=== PATIENT | male | born 1940 | race African-American/Black ===

== ENCOUNTER → 2020-04-20 | Outpatient (CLI) | payer MEDICARE, OTHER | LOC: OD 08:42 | PROVIDERS: ATTEND Otolaryngology | DX: J30.9 Allergic rhinitis, unspecified (principal) | CPT/HCPCS: 36415; 82785; 86003 ==

== ENCOUNTER 2020-06-09 02:36 | Emergency (ER) | payer MEDICARE, OTHER ==
[2020-06-09] MEDS ORDERED: MORPHINE SULFATE 10 MG/ML INJ IV PRN (02:58)
[2020-06-09] MEDS ORDERED: ONDANSETRON HCL INJ/PF 4 MG/2 ML SDV IV ONE (02:58)
[2020-06-09] MEDS ORDERED: NITROGLYCERIN/D5W 50 MG/250 ML RTUINJ IV PRN (02:58)
[2020-06-09] MEDS ORDERED: ASPIRIN 81 MG TABLET, CHEWABLE PO ONE (02:58)
--- NOTE | 2020-06-09 03:05 | ER Document Report ---
ED Respiratory Problem - General Chief Complaint: Shortness Of Breath Stated Complaint: SHORT OF BREATH Time Seen by Provider: 06/09/20 02:47 Primary Care Provider: JOCELYN SUMNER MD [ACTIVE STAFF] - Follow up as needed Mode of Arrival: Ambulatory Information source: Patient, Relative - Notes: 80-year-old black male arrives by POV with his with chief complaint of having right-sided chest pain with associated shortness of breath and dyspnea on exertion that began 45 minutes prior to arrival. Patient reports for the last month he has had increasingly progressive shortness of breath. Chest pain as around 6 out of 10. He denies any hemoptysis but his EKG has sinus tachycardia at 96 bpm and patient has multiple PVCs. Patient's blood pressure is also hypertensive. TRAVEL OUTSIDE OF THE [place] IN LAST 30 DAYS: No - HPI Patient complains to provider of: Chest pain, COPD, Short of breath Onset: Just prior to arrival Duration: Worse/persistent Quality of pain: Achy Severity: Moderate Pain Level: 3 Short of Breath: Moderate Chest pain/discomfort: Heaviness, Worse with deep breaths - Related Data Allergies/Adverse Reactions: No Known Allergies Allergy (Unverified 01/06/16 09:35) Past Medical History - General Information source: Patient - Social History Smoking Status: Former Smoker - Patient quit smoking in 2000 and began smoking when he was 15 years old Cigarette use (# per day): No Chew tobacco use (# tins/day): No Smoking Education Provided: No Frequency of alcohol use: None - Patient quit drinking in 1975 Occupation: Patient is retired marine Lives with: Family Family History: Reviewed & Not Pertinent Patient has suicidal ideation: No Patient has homicidal ideation: No - Past Medical History Cardiac Medical History: Reports: Hx Hypertension Denies: Hx Coronary Artery Disease, Hx Heart Attack Pulmonary Medical History: Denies: Hx Asthma, Hx Bronchitis, Hx COPD, Hx Pneumonia Neurological Medical History: Denies: Hx Cerebrovascular Accident, Hx Seizures Musculoskeletal Medical History: Denies Hx Arthritis - Immunizations Hx Diphtheria, Pertussis, Tetanus Vaccination: No Review of Systems - Review of Systems Constitutional: See HPI, Weakness, Recent illness EENT: No symptoms reported Cardiovascular: See HPI, Chest pain, Palpitations, Orthopnea, Dizziness, Lightheaded Respiratory: See HPI, Hurts to breathe, Short of breath Gastrointestinal: No symptoms reported Genitourinary: No symptoms reported Male Genitourinary: No symptoms reported Musculoskeletal: No symptoms reported Skin: No symptoms reported Hematologic/Lymphatic: No symptoms reported Neurological/Psychological: No symptoms reported Physical Exam - Vital signs Vitals: Temp 98.2 F 06/09/20 03:30 Interpretation: Normal - General General appearance: Appears well, Alert - HEENT Head: Normocephalic, Atraumatic Eyes: Normal Pupils: PERRL - Respiratory Respiratory status: Labored, Tachypnea Chest status: Tender - right sided CP on p/p Breath sounds: Normal Chest palpation: Normal - Cardiovascular Rhythm: Tachycardia Heart sounds: Normal auscultation Murmur: No - Abdominal Inspection: Normal Distension: No distension Bowel sounds: Normal Tenderness: Nontender Organomegaly: No organomegaly - Rectal Prostate: Other - deferred - Genitourinary Scrotum: Other - deferred - Back Back: Normal, Nontender - Extremities General upper extremity: Normal inspection, Nontender, Normal color, Normal ROM, Normal temperature General lower extremity: Normal inspection, Nontender, Normal color, Normal ROM, Normal temperature, Normal weight bearing. No: Ace's sign - Neurological Neuro grossly intact: Yes Cognition: Normal Orientation: AAOx4 [place] Coma Scale Eye Opening: Spontaneous [place] Coma Scale Verbal: Oriented [place] Coma Scale Motor: Obeys Commands [place] Coma Scale Total: 15 Speech: Normal Motor strength normal: LUE, RUE, LLE, RLE Sensory: Normal - Psychological Associated symptoms: Normal affect, Normal mood - Skin Skin Temperature: Warm Skin Moisture: Dry Skin Color: Normal Course - Vital Signs Vital signs: Temp Pulse Resp BP Pulse Ox 98.2 F 06/09/20 03:30 - Laboratory Result Diagrams: 06/09/20 03:03 06/09/20 03:03 Laboratory results interpreted by me: 06/09/20 06/09/20 06/09/20 03:03 03:03 03:03 RDW 14.1 H Glucose 114 H Creatine Kinase 180 H NT-Pro-B Natriuret Pep 1430 H - Diagnostic Test Radiology reviewed: Reports reviewed - CTA chest no PE but viral pattern - EKG Interpretation by Me EKG shows normal: Sinus rhythm Rate: Tachycardia Rhythm: NSR - 106 HR with multiple PVCs and atypical left-sided bundle branch block and this was read by myself and I agree with the quality assurance monitor as well. Critical Care Note - Critical Care Note Comments: By 314 patient's blood pressure had decreased and we held the nitroglycerin drip but patient continued to have multiple PVCs and therefore 1 g of magnesium was written. Discharge - Discharge Clinical Impression: viral lung disease on CTA, COVID-19 virus test result unknown CHF (congestive heart failure) Qualifiers: Heart failure type: unspecified Heart failure chronicity: unspecified Qualified Code(s): I50.9 - Heart failure, unspecified Condition: Stable Disposition: HOME, SELF-CARE Instructions: COVID-19 Guidance for Persons Under Investigation, Chest Pain of Unclear Cause ([facility]) Additional Instructions: Follow-up with personal doctor; this week return to ER as needed; take medicines as directed ;encourage fluids; remain under quarantine until COVID-19 test has returned Prescriptions: Dexamethasone [Decadron 4 Mg Tablet] 4 mg PO DAILY #5 tablet Furosemide [Lasix 20 mg Tablet] 20 mg PO DAILY #3 tablet Azithromycin [Zithromax 250 mg Tablet] 250 mg PO ASDIR PRN #6 tablet PRN Reason: Referrals: JOCELYN SUMNER MD [ACTIVE STAFF] - Follow up as needed
[2020-06-09 03:16] LABS: ABSOLUTE BASOPHILS # (AUTO) 0.1 10^3/uL (0.0-0.2); ABSOLUTE EOSINOPHILS # (AUTO) 0.2 10^3/uL (0.0-0.6); ABSOLUTE LYMPHOCYTES (AUTO) 1.8 10^3/uL (0.5-4.7); ABSOLUTE MONOCYTES (AUTO) 0.6 10^3/uL (0.1-1.4); ABSOLUTE NEUT (AUTO) 2.2 10^3/uL (1.7-8.2); BASOPHILS % (AUTO) 1.2 % (0-2); EOSINOPHILS % (AUTO) 4.5 % (0-6); HEMATOCRIT 41.9 % (37.9-51.0); HEMOGLOBIN 14.9 g/dL (13.5-17.0); LYMPHOCYTES % (AUTO) 37.1 % (13-45); MEAN CORPUSCULAR HEMOGLOBIN 31.8 pg (27.0-33.4); MEAN CORPUSCULAR HGB CONC 35.5 g/dL (32.0-36.0); MEAN CORPUSCULAR VOLUME 90 fl (80-97); MONOCYTES % (AUTO) 12.6 % (3-13); PLATELET COUNT 187 10^3/uL (150-450); RED BLOOD COUNT 4.66 10^6/uL (4.35-5.55); RED CELL DISTRIBUTION WIDTH 14.1 % (11.5-14.0); SEGMENTED NEUTROPHILS % (AUTO) 44.6 % (42-78); TOTAL CELLS COUNTED % (AUTO) 100 %; WHITE BLOOD COUNT 4.9 10^3/uL (4.0-10.5)
[2020-06-09] MEDS ORDERED: MAGNESIUM SULFATE/D5W 1 GM/100 ML RTUPB IV ONE (03:18)
[2020-06-09] MEDS ORDERED: MORPHINE SULFATE 10 MG/ML INJ IV ONE (03:21)
[2020-06-09 03:31] LABS: ALBUMIN 3.8 g/dL (3.5-5.0); ALKALINE PHOSPHATASE 80 U/L (38-126); ANION GAP 12 (5-19); ASPARTATE AMINO TRANSFERASE 26 U/L (17-59); BILIRUBIN,DIRECT 0.3 mg/dL (0.0-0.4); BILIRUBIN,TOTAL 0.6 mg/dL (0.2-1.3); BLOOD UREA NITROGEN 14 mg/dL (7-20); CALCIUM 9.3 mg/dL (8.4-10.2); CARBON DIOXIDE 23 mmol/L (22-30); CHLORIDE 106 mmol/L (98-107); CREATINE KINASE 180 U/L (55-170); GLUCOSE 114 mg/dL (75-110); POTASSIUM 3.7 mmol/L (3.6-5.0); TOTAL PROTEIN 6.7 g/dL (6.3-8.2)
--- NOTE | 2020-06-09 03:38 | RADIOLOGY REPORT (SQ) ---
EXAM DESCRIPTION: XR CHEST 1 VIEW COMPLETED DATE/TME: 06/09/2020 02:50 CLINICAL HISTORY: 80 years, Male, dyspnea COMPARISON: 11/19/2015 chest NUMBER OF VIEWS: 1 TECHNIQUE: Portable chest LIMITATIONS: None. FINDINGS: Stable cardiomegaly. Post surgical change cervical spine. Mild elevation right hemidiaphragm. Mild diffuse interstitial edema. Subsegmental atelectasis right lung base IMPRESSION: Stable cardiomegaly. Mild interstitial edema copyright 2010 [employer]- All Rights Reserved
[2020-06-09 03:43] LABS: NT PRO BNP 1430 pg/mL (<450)
[2020-06-09 03:45] LABS: INTERNATIONAL RATION (INR) 1.03; PROTHROMBIN TIME 13.7 SEC (11.4-15.4)
[2020-06-09 03:46] LABS: PARTIAL THROMBOPLASTIN TIME 28.3 SEC (23.5-35.8)
[2020-06-09 03:49] LABS: TROPONIN I < 0.012 ng/mL
[2020-06-09] MEDS ORDERED: FUROSEMIDE INJ/PF 20 MG/2 ML SDV IV ONE (04:12)
--- NOTE | 2020-06-09 05:06 | RADIOLOGY REPORT (SQ) ---
CLINICAL HISTORY: sob right cp. CREAT 0.94 COMPARISON: None. TECHNIQUE: CT CHEST ANGIOGRAPHY WITHOUT THEN WITH IV CONTRAST on 06/09/2020 3:18 AM CDT. MIPS reconstructions were generated. This exam was performed according to our departmental dose-optimization program, which includes automated exposure control, adjustment of the mA and/or kV according to patient size and/or use of iterative reconstruction technique. MIP images were generated. FINDINGS: Thoracic aorta is normal in course and caliber without aneurysm or dissection. Pulmonary arteries are adequately opacified without acute or chronic filling defects. The heart is moderately enlarged. There is mild intralobular septal thickening in the upper lungs. There is no pericardial effusion. Intrathoracic lymph nodes are not enlarged. There small pleural effusions. Central airways are patent. There are patchy peripheral groundglass opacities within both lungs. There are no acute abnormalities within the limited images of the upper abdomen. There are no acute osseous findings. No suspicious bony lesions. IMPRESSION: Cardiomegaly with no aortic dissection or aneurysm. No pulmonary embolus. Commonly reported imaging features of viral pneumonia are present. Other processes such as influenza pneumonia and organizing pneumonia, as can be seen with drug toxicity and connective tissue disease, can cause a similar imaging pattern. [PneTyp] Reference: https://pubs.rsna.org/doi/full/10.1148/ryct.7704731861
[2020-06-09] MEDS ORDERED: DEXAMETHASONE 4 MG TABLET PO ONE (05:24)
[2020-06-09] MEDS ORDERED: AZITHROMYCIN 250 MG TABLET PO ONE (05:24)
[2020-06-09 06:46] VITALS: BP 155/73
[2020-06-09 09:07] LABS: A TYPE INFLUENZA AG NEGATIVE (NEGATIVE); B INFLUENZA AG NEGATIVE (NEGATIVE)
--- NOTE | 2020-06-09 19:45 | EKG REPORT ---
SEVERITY:- ABNORMAL ECG - SINUS TACHYCARDIA IVCD, CONSIDER ATYPICAL LBBB : Confirmed by: Pipe Drummond 09-Jun-2020 19:45:08
== END 2020-06-09 06:44 | disposition home or self-care (01) ==
LOC: ER 02:36
DX: I50.9 Heart failure, unspecified (principal); J98.4 Other disorders of lung; B97.89 Other viral agents as the cause of diseases classified elsewhere; R06.02 Shortness of breath; R07.9 Chest pain, unspecified; R00.2 Palpitations; R06.01 Orthopnea; R42 Dizziness and giddiness; I10 Essential (primary) hypertension; J44.9 Chronic obstructive pulmonary disease, unspecified; Z87.891 Personal history of nicotine dependence; Z20.828 Contact with and (suspected) exposure to other viral communicable diseases
CPT/HCPCS: 93005; 99285; 96375; 96365; 36415; 82550; 83735; 85025; 85610; 85730; 80053; 84484; 87804; 83880; 71045; 71275; 93010; U0003; A9270 ×3; J1940; J2270; J3475; J2405; C9803; 87635; J8540

== ENCOUNTER 2020-06-12 02:29 | Emergency (ER) | payer MEDICARE, OTHER ==
[2020-06-12 03:10] LABS: ABSOLUTE BASOPHILS # (AUTO) 0.1 10^3/uL (0.0-0.2); ABSOLUTE EOSINOPHILS # (AUTO) 0.3 10^3/uL (0.0-0.6); ABSOLUTE LYMPHOCYTES (AUTO) 2.5 10^3/uL (0.5-4.7); ABSOLUTE MONOCYTES (AUTO) 0.8 10^3/uL (0.1-1.4); ABSOLUTE NEUT (AUTO) 2.2 10^3/uL (1.7-8.2); BASOPHILS % (AUTO) 1.8 % (0-2); EOSINOPHILS % (AUTO) 4.5 % (0-6); HEMOGLOBIN 14.4 g/dL (13.5-17.0); LYMPHOCYTES % (AUTO) 42.4 % (13-45); MEAN CORPUSCULAR HEMOGLOBIN 30.6 pg (27.0-33.4); MEAN CORPUSCULAR HGB CONC 34.1 g/dL (32.0-36.0); MEAN CORPUSCULAR VOLUME 90 fl (80-97); PLATELET COUNT 203 10^3/uL (150-450); RED BLOOD COUNT 4.68 10^6/uL (4.35-5.55); RED CELL DISTRIBUTION WIDTH 14.4 % (11.5-14.0); SEGMENTED NEUTROPHILS % (AUTO) 38.3 % (42-78); TOTAL CELLS COUNTED % (AUTO) 100 %; WHITE BLOOD COUNT 5.8 10^3/uL (4.0-10.5)
[2020-06-12 03:16] LABS: ALBUMIN 3.9 g/dL (3.5-5.0); ALKALINE PHOSPHATASE 79 U/L (38-126); ANION GAP 9 (5-19); ASPARTATE AMINO TRANSFERASE 36 U/L (17-59); BILIRUBIN,DIRECT 0.2 mg/dL (0.0-0.4); BILIRUBIN,TOTAL 0.5 mg/dL (0.2-1.3); BLOOD UREA NITROGEN 20 mg/dL (7-20); CALCIUM 9.3 mg/dL (8.4-10.2); CARBON DIOXIDE 25 mmol/L (22-30); CHLORIDE 107 mmol/L (98-107); CREATINE KINASE 84 U/L (55-170); GLUCOSE 92 mg/dL (75-110); POTASSIUM 4.1 mmol/L (3.6-5.0); TOTAL PROTEIN 6.7 g/dL (6.3-8.2)
--- NOTE | 2020-06-12 03:16 | RADIOLOGY REPORT (SQ) ---
CLINICAL HISTORY: CHEST PAIN COMPARISON: 06/09/2020. TECHNIQUE: XR CHEST 1 VIEW 06/12/2020 2:38 AM CDT FINDINGS: The heart is enlarged. There is mild bibasilar airspace disease. There is no pleural effusion. There is no pneumothorax. There are no acute osseous findings. IMPRESSION: No change.
[2020-06-12 03:26] LABS: CREATINE KINASE MB 2.49 ng/mL (<4.55); TROPONIN I 0.013 ng/mL
[2020-06-12] MEDS ORDERED: MORPHINE SULFATE 10 MG/ML INJ IV ONE ×2 (05:10→10:17)
--- NOTE | 2020-06-12 05:55 | ER Document Report ---
ED Cardiac - General TRAVEL OUTSIDE OF THE [place] IN LAST 30 DAYS: No <NINA MEDINA - Last Filed: 06/12/20 06:06> <PAZ ACEVEDO - Last Filed: 06/12/20 10:34> - General Chief Complaint: Chest Pain Stated Complaint: CHEST PAIN Time Seen by Provider: 06/12/20 02:45 - HPI Notes: Patient is an 80-year-old male who presents emergency department for evaluation. He was actually seen here recently with similar symptoms. Over the last few weeks he has had a pain in the center of his chest that radiates across over to his right. He states it feels like a bubble. He feels like he is short of breath. He denies any sharp pain. He has had no fevers. No cough. He denies any other associated symptoms beside the shortness of breath. He states has been seen for this in the past. He was seen here a few days ago, placed as a PUI. He was treated with Lasix and Zithromax, states that he has felt better intermittently. The symptoms came on him again today while he was watching television. (NINA MEDINA) - Related Data Allergies/Adverse Reactions: No Known Allergies Allergy (Unverified 01/06/16 09:35) Past Medical History - General Information source: Patient - Social History Smoking Status: Former Smoker Family History: Reviewed & Not Pertinent - Past Medical History Cardiac Medical History: Reports: Hx Hypercholesterolemia, Hx Hypertension Denies: Hx Coronary Artery Disease, Hx Heart Attack Pulmonary Medical History: Denies: Hx Asthma, Hx Bronchitis, Hx COPD, Hx Pneumonia Neurological Medical History: Denies: Hx Cerebrovascular Accident, Hx Seizures Endocrine Medical History: Reports: Hx Diabetes Mellitus Type 2 Renal/ Medical History: Reports: Hx Benign Prostatic Hyperplasia Musculoskeletal Medical History: Denies Hx Arthritis Past Surgical History: Reports: Hx Appendectomy, Hx Orthopedic Surgery - Immunizations Hx Diphtheria, Pertussis, Tetanus Vaccination: No <NINA MEDINA - Last Filed: 06/12/20 06:06> Review of Systems - Review of Systems Constitutional: No symptoms reported EENT: No symptoms reported Cardiovascular: See HPI Respiratory: See HPI Gastrointestinal: No symptoms reported Genitourinary: No symptoms reported Musculoskeletal: No symptoms reported Skin: No symptoms reported Neurological/Psychological: No symptoms reported <NINA MEDINA - Last Filed: 06/12/20 06:06> Physical Exam <NINA MEDINA - Last Filed: 06/12/20 06:06> - Vital signs Vitals: Resp 23 H 06/12/20 02:40 - Notes Notes: This is an 80-year-old male who appears stated age, no acute distress. Vital signs reviewed, please refer to chart. Head is normocephalic, atraumatic. Pupils equal round, reactive to light. Neck is supple without meningismus. Heart is regular rate and rhythm. Lungs are clear to auscultation bilaterally. Abdomen is soft, nontender, normoactive bowel sounds throughout. Extremities without cyanosis, clubbing. 2+ pretibial pitting edema bilaterally with no posterior calf tenderness. Peripheral pulses are equal. Skin is warm and dry. Patient is awake, alert, neurological exam is nonfocal. (NINA MEDINA) Course - Laboratory Result Diagrams: 06/12/20 02:45 06/12/20 02:45 - Diagnostic Test Radiology reviewed: Reports reviewed <NINA MEDINA - Last Filed: 06/12/20 06:06> - Laboratory Result Diagrams: 06/12/20 02:45 06/12/20 02:45 - Diagnostic Test Radiology reviewed: Image reviewed, Reports reviewed <PAZ ACEVEDO - Last Filed: 06/12/20 10:34> - Re-evaluation Re-evalutation: 06/12/20 05:54 Patient presents to the emergency department for evaluation. On initial evaluation his pain is in his chest. His laboratory investigations were ordered, negative troponin x2. I asked him how he was feeling on reassessment. He states he really did not feel any better, and he starts pointing to his right upper quadrant. On examination, now the patient has pain and tenderness in his right upper quadrant. His LFTs are unremarkable. I will add a lipase and order a CT scan of the abdomen pelvis with IV contrast. 06/12/20 06:[address] scan. His abdomen is tender but nonsurgical. At this time, care of this patient will be turned over to Dr. Acevedo, please see his note for the remainder this patient's ED course and disposition. (NINA MEDINA) 06/12/20 10:20 Patient has completed the CT scan of abdomen and pelvis and the report shows no acute process. Patient reports to me that he has had this pain in his right abdominal area for years and that he usually goes to the [facility] and those doctors and given medications to control his pain. Patient was seen in the emergency department 1 week ago for similar presentation as of today. So patient has chronic pain in his right upper quadrant region without any objective organic reason that we have learned today on a CT scan. My plan is to give patient IV morphine and to discharge him home and I will evaluate if I can learn what medication he takes for this pain. Nonetheless I explained the pat ient I could write him a couple days worth of pain medication until he can get with his primary care doctors. (PAZ ACEVEDO) - Vital Signs Vital signs: Temp Pulse Resp BP Pulse Ox 97.8 F 20 128/74 H 95 06/12/20 04:00 06/12/20 07:01 06/12/20 07:01 06/12/20 07:01 06/12/20 10:21 Vital signs stable. (PAZ ACEVEDO) - Laboratory Laboratory results interpreted by me: 06/12/20 02:45 RDW 14.4 H Seg Neutrophils % 38.3 L 06/12/20 10:21 Laboratories essentially unremarkable for any acute process. (PAZ ACEVEDO) - Diagnostic Test Radiology results interpreted by me: 06/12/20 05:54 Chest X-Ray 06/12/20 02:38 IMPRESSION: No change. (NINA MEDINA) 06/12/20 10:22 Chest X-Ray 06/12/20 02:38 IMPRESSION: No change. Abdomen/Pelvis CT 06/12/20 05:50 IMPRESSION: 1. No acute inflammatory or obstructive process identified abdomen/pelvis. 2. Small bilateral pleural effusions. 3. Diverticulosis without evidence of acute diverticulitis. This exam was performed according to our departmental dose-optimization program, which includes automated exposure control, adjustment of the mA and/or kV according to patient size and/or use of iterative reconstruction technique. Review of x-rays and CT scan shows chest x-ray no acute change from prior chest x-ray no acute process. Patient does have small pleural effusions. CT of abdomen and pelvis shows no acute inflammatory or obstructive process in the abdomen and pelvis bilateral small pleural effusions and diverticulosis without evidence of diverticulitis. (PAZ ACEVEDO) - EKG Interpretation by Me Additional EKG results interpreted by me: 06/12/20 05:55 Sinus tachycardia the rate of 104 bpm. Note of run of PVCs, multifocal. Left axis deviation. IVCD. Nonspecific ST changes, but no acute changes concerning for ischemia or infarction. No significant change compared to prior study. (NINA MEDINA) 06/12/20 10:25 Twelve-lead EKG shows sinus tachycardia rate of 104 there is noted frequent PVCs. There is a left anterior fascicular block noted with left axis deviation. Patient has poor R wave progression across the anterior chest leads. MO QRS and QT intervals are within normal interval range. There is no acute STEMI noted. (PAZ ACEVEDO) Discharge <NINA MEDINA - Last Filed: 06/12/20 06:06> <PAZ ACEVEDO - Last Filed: 06/12/20 10:34> - Discharge Clinical Impression: Chest pain, Right upper quadrant abdominal pain, Chronic upper abdominal pain Condition: Stable Disposition: HOME, SELF-CARE Prescriptions: Hydrocodone/Acetaminophen [[place] 5-325 mg Tablet] 1 tab PO QID PRN 2 Days #8 tablet PRN Reason: prn abd pain Ondansetron [Zofran Odt 4 mg Tablet] 1 - 2 tab PO Q4H PRN #15 tab.rapdis PRN Reason: For Nausea/Vomiting
--- NOTE | 2020-06-12 06:56 | RADIOLOGY REPORT (SQ) ---
EXAM DESCRIPTION: CT ABDOMEN PELVIS WITH IV CONTRAST COMPLETED DATE/TME: 06/12/2020 05:50 CLINICAL HISTORY: RUQ pain COMPARISON: None Available. TECHNIQUE: CT of the abdomen and pelvis performed following IV administration of 100 mL Omnipaque 350. FINDINGS: Lung Bases: Small bilateral pleural effusions. Coronary artery atherosclerosis. Bones: Degenerative change of the visualized spine. Posterior irma and screw fixation at L4/5. Posterior laminectomies at this level. Abdomen: Liver: The liver has normal size and density. No intrahepatic biliary dilatation. Gallbladder: No calcified gallstones. Spleen, Pancreas, and Adrenal Glands: The spleen, pancreas, and adrenal glands are unremarkable. Kidneys: No hydronephrosis or obstructing calculus. Vasculature: Aortoiliac atherosclerosis. IVC is unremarkable. The portal vein is patent. The proximal visceral and renal arteries are patent. Stomach: Small hiatal hernia. Other: No free intraperitoneal air. No free fluid or lymphadenopathy. Pelvis: Bladder: Urinary bladder is unremarkable. Bowel: No dilated loops of large or small bowel. Scattered diverticula of the colon. Appendix: Normal appendix. Pelvis: Prostate is not enlarged. IMPRESSION: 1. No acute inflammatory or obstructive process identified abdomen/pelvis. 2. Small bilateral pleural effusions. 3. Diverticulosis without evidence of acute diverticulitis. This exam was performed according to our departmental dose-optimization program, which includes automated exposure control, adjustment of the mA and/or kV according to patient size and/or use of iterative reconstruction technique.
[2020-06-12] MEDS ORDERED: ONDANSETRON HCL INJ/PF 4 MG/2 ML SDV IV ONE (10:18)
[2020-06-12 10:58] VITALS: BP 119/81
--- NOTE | 2020-06-12 18:02 | EKG REPORT ---
SEVERITY:- ABNORMAL ECG - SINUS TACHYCARDIA RUN OF VENTRICULAR PREMATURE COMPLEXES ABERRANT COMPLEX, POSSIBLY SUPRAVENTRICULAR LEFT ANTERIOR FASCICULAR BLOCK ABNRM R PROG, CONSIDER ASMI OR LEAD PLACEMENT : Confirmed by: Piep Drummond 12-Jun-2020 18:01:51
== END 2020-06-12 11:06 | disposition home or self-care (01) ==
LOC: ER 02:29
DX: J90 Pleural effusion, not elsewhere classified (principal); R07.9 Chest pain, unspecified; R10.11 Right upper quadrant pain; G89.29 Other chronic pain; K57.30 Diverticulosis of large intestine without perforation or abscess without bleeding; R10.811 Right upper quadrant abdominal tenderness; R06.02 Shortness of breath; R60.0 Localized edema; R00.0 Tachycardia, unspecified; I49.3 Ventricular premature depolarization; I44.4 Left anterior fascicular block; I10 Essential (primary) hypertension; E11.9 Type 2 diabetes mellitus without complications; Z87.891 Personal history of nicotine dependence
CPT/HCPCS: 93005; 96376; 99285; 96374; 96375; 36415; 82553; 82550; 83690; 83735; 85025; 80053; 84484; 71045; 74177; 93010; J2270; J2405

== ENCOUNTER → 2020-07-29 | Outpatient (CLI) | payer MEDICARE, OTHER ==
--- NOTE | 2020-07-29 12:53 | RADIOLOGY REPORT (SQ) ---
EXAM DESCRIPTION: U/S ABDOMEN LIMITED W/O DOP IMAGES COMPLETED DATE/TIME: 07/29/2020 12:30 pm REASON FOR STUDY: (R10.11)RIGHT UPPER QUADRANT PAIN R10.11 RIGHT UPPER QUADRANT PAIN COMPARISON: CT of the abdomen and pelvis from 06/12/2020. TECHNIQUE: Dynamic and static grayscale images acquired of the abdomen and recorded on PACS. Additio nal selected color Doppler and spectral images recorded. LIMITATIONS: None. FINDINGS: PANCREAS: The pancreas is obscured by overlying bowel. LIVER: The echogenicity of the hepatic parenchyma is increased and it is associated with attenuation of the far field. LIVER VASCULATURE: Normal hepatopetal directional flow in the portal vein. GALLBLADDER: The gallbladder wall measures 1.3 mm in thickness. There are shadowing echogenic calcul i within the gallbladder lumen. There is no pericholecystic fluid. ULTRASOUND-DETECTED HERNANDES'S SIGN: Negative. INTRAHEPATIC DUCTS AND COMMON DUCT: The common bile duct measures 6 mm in diameter. There is no dila tation of the intrahepatic ducts. INFERIOR VENA CAVA: Not assessed. AORTA: No aneurysm. RIGHT KIDNEY: The right kidney measures 11.1 cm in length. There is no hydronephrosis. PERITONEAL AND RIGHT PLEURAL SPACE: No ascites or effusions. OTHER: No other findings. IMPRESSION: 1. Increased echogenicity of the hepatic parenchyma suggestive of underlying diffuse he patocellular disease most commonly hepatic steatosis. 2. Cholelithiasis. 3. The pancreas is obscured by overlying bowel. TECHNICAL DOCUMENTATION: JOB ID: [id number] 2010 [employer]- All Rights Reserved Reading location - IP/workstation name: [email or web address]
== END ==
LOC: RAD 10:25
PROVIDERS: ATTEND Internal Medicine Geriatric Medicine
DX: K80.20 Calculus of gallbladder without cholecystitis without obstruction (principal); R10.11 Right upper quadrant pain
CPT/HCPCS: 76705

== ENCOUNTER 2020-07-31 09:41 | Observation (INO) | payer MEDICARE, OTHER ==
--- NOTE | 2020-07-31 10:32 | ER Document Report ---
ED GI/ - General Chief Complaint: Abdominal Pain Stated Complaint: ABDOMINAL PAIN Time Seen by Provider: 07/31/20 10:08 Primary Care Provider: ROSENDO QUEVEDO MD [Primary Care Provider] - Follow up as needed Notes: HPI: Patient is an 80-year-old male with past medical history as recorded presents today stating that he has had some intermittent abdominal discomfort to the right abdomen since September. He states it is associated with eating. Minimal radiation to the back. No radiation to the lower abdomen all the quadrants. Some nausea without vomiting, fevers, cough, or chest pain. Patient has been seen for this twice in the emergency department and followed up with his primary care physician recently with an outpatient ultrasound that was performed yesterday showing gallstones. Patient was sent here for admission and surgical consultation given that the primary care physician was concerned about the patient's age with outpatient surgery. Patient is on Eliquis but is unsure why. Patient denies any pain at this moment. ROS: See HPI All other review of systems reviewed and otherwise negative Reviewed vital signs and nursing note as charted by RN. PHYSICAL EXAM: CONSTITUTIONAL: Alert and oriented and responds appropriately to questions. Well-appearing; well-nourished HEAD: Normocephalic; atraumatic EYES: Sclerae non-icteric ENT: Normal nose; no rhinorrhea; moist mucous membranes; pharynx without lesions noted NECK: Supple without meningismus; non-tender; no cervical lymphadenopathy, no masses CARD: Regular rate and rhythm; no murmurs; symmetric distal pulses RESP: Normal chest excursion without splinting or tachypnea; breath sounds clear and equal bilaterally; no wheezes, no rhonchi, no rales ABD/GI: Normal bowel sounds; non-distended; patient does have minimal tenderness to the right abdomen with no palpable masses with a negative Correa sign. No lower abdominal tenderness BACK: The back appears normal and is non-tender to palpation EXT: Normal ROM in all joints; non-tender to palpation; no edema SKIN: No acute lesions noted NEURO: CN 2-12 intact; 5/5 bilateral upper and lower extremity strength with sensation intact to light touch PSYCH: The patient's mood and manner are appropriate. Grooming and personal hygiene are appropriate. TRAVEL OUTSIDE OF THE [place] IN LAST 30 DAYS: No - Related Data Allergies/Adverse Reactions: No Known Allergies Allergy (Unverified 01/06/16 09:35) Past Medical History - Social History Smoking Status: Unknown if Ever Smoked Family History: Reviewed & Not Pertinent - Past Medical History Cardiac Medical History: Reports: Hx Hypercholesterolemia, Hx Hypertension Denies: Hx Coronary Artery Disease, Hx Heart Attack Pulmonary Medical History: Denies: Hx Asthma, Hx Bronchitis, Hx COPD, Hx Pneumonia Neurological Medical History: Denies: Hx Cerebrovascular Accident, Hx Seizures Endocrine Medical History: Reports: Hx Diabetes Mellitus Type 2 Renal/ Medical History: Reports: Hx Benign Prostatic Hyperplasia Musculoskeletal Medical History: Denies Hx Arthritis Past Surgical History: Reports: Hx Appendectomy, Hx Orthopedic Surgery - Immunizations Hx Diphtheria, Pertussis, Tetanus Vaccination: No Physical Exam - Vital signs Vitals: Temp Pulse Resp BP Pulse Ox 98.1 F 83 14 124/81 97 07/31/20 09:47 07/31/20 09:47 07/31/20 09:47 07/31/20 09:47 07/31/20 09:47 Course - Re-evaluation Re-evalutation: 07/31/20 10:32 Given the above history and physical I will order a liver panel and a lipase as well as an EKG preoperatively and then call the primary care physician to discuss. Vital signs as recorded. 07/31/20 10:59 EKG shows a heart of 85, normal sinus rhythm, left axis deviation, poor wave progression, no obvious ST elevation or depression. Nonspecific QRS widening in leads I and aVL consistent with possibly a partial bundle branch block. Previous EKG shows no obvious appreciable change. 07/31/20 11:35 Labs as recorded. I did call and speak with the primary care physician who would like to admit the patient on telemetry. He has asked that I know persistent by alerting the surgeon that he would like a consultation. - Vital Signs Vital signs: Temp Pulse Resp BP Pulse Ox 98.1 F 83 14 124/81 97 07/31/20 09:47 07/31/20 09:47 07/31/20 09:47 07/31/20 09:47 07/31/20 09:47 - Laboratory Result Diagrams: 07/31/20 10:25 07/31/20 10:25 Laboratory results interpreted by me: 07/31/20 07/31/20 10:25 10:25 RDW 14.4 H [place] % (Auto) 14.0 H Glucose 159 H Discharge - Discharge Clinical Impression: Symptomatic cholelithiasis Condition: Fair Disposition: ADMITTED INPATIENT Admitting Provider: [facility] Unit Admitted: Telemetry Referrals: ROSENDO QUEVEDO MD [Primary Care Provider] - Follow up as needed
[2020-07-31 10:37] LABS: ABSOLUTE BASOPHILS # (AUTO) 0.1 10^3/uL (0.0-0.2); ABSOLUTE EOSINOPHILS # (AUTO) 0.1 10^3/uL (0.0-0.6); ABSOLUTE LYMPHOCYTES (AUTO) 1.3 10^3/uL (0.5-4.7); ABSOLUTE MONOCYTES (AUTO) 0.7 10^3/uL (0.1-1.4); ABSOLUTE NEUT (AUTO) 2.7 10^3/uL (1.7-8.2); BASOPHILS % (AUTO) 1.6 % (0-2); HEMATOCRIT 39.2 % (37.9-51.0); HEMOGLOBIN 13.6 g/dL (13.5-17.0); MEAN CORPUSCULAR HEMOGLOBIN 30.7 pg (27.0-33.4); MEAN CORPUSCULAR HGB CONC 34.6 g/dL (32.0-36.0); MEAN CORPUSCULAR VOLUME 89 fl (80-97); PLATELET COUNT 192 10^3/uL (150-450); RED BLOOD COUNT 4.42 10^6/uL (4.35-5.55); RED CELL DISTRIBUTION WIDTH 14.4 % (11.5-14.0); SEGMENTED NEUTROPHILS % (AUTO) 55.4 % (42-78); TOTAL CELLS COUNTED % (AUTO) 100 %; WHITE BLOOD COUNT 4.9 10^3/uL (4.0-10.5)
[2020-07-31 10:49] LABS: INTERNATIONAL RATION (INR) 1.03; PROTHROMBIN TIME 13.7 SEC (11.4-15.4)
[2020-07-31 11:09] LABS: ALBUMIN 3.8 g/dL (3.5-5.0); ALKALINE PHOSPHATASE 62 U/L (38-126); ANION GAP 7 (5-19); ASPARTATE AMINO TRANSFERASE 24 U/L (17-59); BILIRUBIN,DIRECT 0.1 mg/dL (0.0-0.4); BILIRUBIN,TOTAL 0.9 mg/dL (0.2-1.3); BLOOD UREA NITROGEN 18 mg/dL (7-20); CALCIUM 9.5 mg/dL (8.4-10.2); CARBON DIOXIDE 25 mmol/L (22-30); CHLORIDE 105 mmol/L (98-107); GLUCOSE 159 mg/dL (75-110); POTASSIUM 4.5 mmol/L (3.6-5.0); TOTAL PROTEIN 6.6 g/dL (6.3-8.2)
--- NOTE | 2020-07-31 15:16 | PDOC CONSULTATION ---
Consultation Consult Date: 07/31/20 Provider Consulted: WDAINE REESE Consult reason:: Cholelithiasis History of Present Illness Admission Date/PCP: 07/31/20 12:39 ROSENDO QUEVEDO History of Present Illness: LETTY RODRIGUEZ is a 80 year old male with chronic right upper quadrant pain since September complaining of persistent right upper quadrant pains went to ED today. He had an ultrasound of the gallbladder done 07/29/2020 which showed cholelithiasis but no evidence of acute cholecystitis. There is increased diffuse hepatocellular disease. No nausea or vomiting. No fever nor chills. Pain sometimes worsened by eating. Past Medical History Cardiac Medical History: Reports: Hyperlipidema, Hypertension Denies: Coronary Artery Disease, Myocardial Infarction Pulmonary Medical History: Denies: Asthma, Bronchitis, Chronic Obstructive Pulmonary Disease (COPD), Pneumonia Neurological Medical History: Denies: Seizures Endocrine Medical History: Reports: Diabetes Mellitus Type 2 Musculoskeltal Medical History: Denies: Arthritis Hematology: Denies: Anemia Past Surgical History Past Surgical History: Reports: Appendectomy, Orthopedic Surgery Social History Smoking Status: Unknown if Ever Smoked Family History Family History: Reviewed & Not Pertinent Parental Family History Reviewed: Yes Children Family History Reviewed: No Sibling(s) Family History Reviewed.: No Medication/Allergy Home Medications: Atorvastatin Calcium [Lipitor 20 mg Tablet] 20 mg PO QHS 01/06/16 Insulin Glargine,Hum.rec.anlog [Lantus] 20 unit SQ QPM 01/06/16 NPH, Human Insulin Isophane [Novolin N (NPH) Insulin 100 unit/mL] 4 unit SUBCUT BIDACBS 01/06/16 Furosemide [Lasix 20 mg Tablet] 20 mg PO DAILY #3 tablet 06/09/20 Albuterol Sulfate [Proair Hfa Inhalation Aerosol 8.5 gm Mdi] 2 puff IH Q4 PRN 07/31/20 Albuterol Sulfate [Ventolin 0.083% Neb 2.5 mg/3 ml Ampul] 2.5 mg NEB TID 07/31/20 Apixaban [Eliquis 2.5 mg Tablet] 1 tab PO BID 07/31/20 Aspirin [Ecotrin 81 mg EC Tablet] 81 mg PO DAILY 07/31/20 Carvedilol [Coreg 3.125 mg Tablet] 3.125 mg PO Q12 07/31/20 Cholecalciferol (Vitamin D3) [Vitamin D3 1000 Unit Tablet] 1,000 unit PO DAILY 07/31/20 Loratadine [Claritin 10 mg Tablet] 10 mg PO DAILY 07/31/20 Metformin HCl [Metformin HCl ER] 1,000 mg PO WSUPPER 07/31/20 Montelukast Sodium [Singulair 10 mg Tablet] 10 mg PO DAILY 07/31/20 Oxymetazoline HCl [Afrin 0.05% Nasal Ava 15 ml Bottle] 1 spray NASL ASDIR PRN 07/31/20 Pantoprazole Sodium [Protonix [address] Tablet] 40 mg PO DAILY 07/31/20 Telmisartan/Hydrochlorothiazid [Telmisartan-Hctz 40-12.5 mg Tb] 1 each PO DAILY 07/31/20 Tramadol HCl [Ultram 50 mg Tablet] 50 mg PO TID 07/31/20 Allergies/Adverse Reactions: No Known Allergies Allergy (Unverified 01/06/16 09:35) Review of Systems Constitutional: PRESENT: as per HPI Gastrointestinal: PRESENT: abdominal pain Physical Exam Vital Signs: Temp Pulse Resp BP Pulse Ox 97.5 F 75 16 137/89 H 99 07/31/20 14:46 07/31/20 14:46 07/31/20 14:46 07/31/20 14:46 07/31/20 14:46 Intake & Output 07/30/20 07/31/20 08/01/20 06:59 06:59 06:59 Weight 98.4 kg General appearance: PRESENT: mild distress Head exam: PRESENT: atraumatic Eye exam: PRESENT: conjunctiva pink Mouth exam: PRESENT: moist Neck exam: PRESENT: full ROM Respiratory exam: PRESENT: clear to auscultation pedrito Cardiovascular exam: PRESENT: RRR Pulses: PRESENT: normal radial pulses Vascular exam: PRESENT: normal capillary refill GI/Abdominal exam: PRESENT: soft, tenderness - Mild right upper quadrant tenderness Rectal exam: PRESENT: deferred Neurological exam: PRESENT: alert, oriented to person, oriented to place, oriented to time, oriented to situation Skin exam: PRESENT: normal color, warm Results Laboratory Results: 07/31/20 10:25 07/31/20 10:25 07/31/20 07/31/20 10:25 10:25 WBC 4.9 RBC 4.42 Hgb 13.6 Hct 39.2 MCV 89 MCH 30.7 MCHC 34.6 RDW 14.4 H Plt Count 192 Seg Neutrophils % 55.4 Sodium 137.1 Potassium 4.5 Chloride 105 Carbon Dioxide 25 Anion Gap 7 BUN 18 Creatinine 0.95 Est GFR ( Amer) > 60 Glucose 159 H Calcium 9.5 Total Bilirubin 0.9 AST 24 Alkaline Phosphatase 62 Total Protein 6.6 Albumin 3.8 Lipase 119.6 Assessment & Plan - Diagnosis (1) Hepatocellular disease Is this a current diagnosis for this admission?: Yes (2) Symptomatic cholelithiasis Is this a current diagnosis for this admission?: Yes - Time Time Spent: 30 to 50 Minutes - Inpatient Certification Medical Necessity: Need For IV Fluids, Need for IV Antibiotics - Plan Summary Plan Summary: 1-year-old male diabetic on insulin and hypertensive complaining of right upper quadrant pains for the past several months off and on. He had an ultrasound of the gallbladder 07/29/2020 which showed cholelithiasis but no acute cholecystitis findings. She had increased liver echogenicity likely due to diffuse he patocellular disease he used to drink alcohol but he stopped long time ago, in the 80s. There is mild tenderness in the right upper quadrant on examination. His white count is normal and his LFTs are all normal. Impression: Cholelithiasis but doubt acute cholecystitis. May need HIDA scan to be definitive for cholecystitis which would justify surgical intervention.
--- NOTE | 2020-07-31 15:27 | PDOC CONSULTATION ---
Consultation Consult Date: 07/31/20 Provider Consulted: DWAINE REESE Consult reason:: Cholelithiasis History of Present Illness Admission Date/PCP: 07/31/20 12:39 ROSENDO QUEVEDO History of Present Illness: LETTY RODRIGUEZ is a 80 year old male with insulin-dependent diabetes mellitus with chronic right upper quadrant pain since September complaining of persistent right upper quadrant pains went to ED today. He had an ultrasound of the gallbladder done 07/29/2020 which showed cholelithiasis but no evidence of acute cholecystitis. There is increased diffuse hepatocellular disease. No nausea or vomiting. No fever nor chills. Pain sometimes worsened by eating. Past Medical History Cardiac Medical History: Reports: Hyperlipidema, Hypertension Denies: Coronary Artery Disease, Myocardial Infarction Pulmonary Medical History: Denies: Asthma, Bronchitis, Chronic Obstructive Pulmonary Disease (COPD), Pneumonia Neurological Medical History: Denies: Seizures Endocrine Medical History: Reports: Diabetes Mellitus Type 2 Musculoskeltal Medical History: Denies: Arthritis Hematology: Denies: Anemia Past Surgical History Past Surgical History: Reports: Appendectomy, Orthopedic Surgery Social History Smoking Status: Unknown if Ever Smoked Family History Family History: Reviewed & Not Pertinent Parental Family History Reviewed: No Children Family History Reviewed: No Sibling(s) Family History Reviewed.: No Medication/Allergy Home Medications: Atorvastatin Calcium [Lipitor 20 mg Tablet] 20 mg PO QHS 01/06/16 Insulin Glargine,Hum.rec.anlog [Lantus] 20 unit SQ QPM 01/06/16 NPH, Human Insulin Isophane [Novolin N (NPH) Insulin 100 unit/mL] 4 unit SUBCUT BIDACBS 01/06/16 Furosemide [Lasix 20 mg Tablet] 20 mg PO DAILY #3 tablet 06/09/20 Albuterol Sulfate [Proair Hfa Inhalation Aerosol 8.5 gm Mdi] 2 puff IH Q4 PRN 07/31/20 Albuterol Sulfate [Ventolin 0.083% Neb 2.5 mg/3 ml Ampul] 2.5 mg NEB TID 07/31/20 Apixaban [Eliquis 2.5 mg Tablet] 1 tab PO BID 07/31/20 Aspirin [Ecotrin 81 mg EC Tablet] 81 mg PO DAILY 07/31/20 Carvedilol [Coreg 3.125 mg Tablet] 3.125 mg PO Q12 07/31/20 Cholecalciferol (Vitamin D3) [Vitamin D3 1000 Unit Tablet] 1,000 unit PO DAILY 07/31/20 Loratadine [Claritin 10 mg Tablet] 10 mg PO DAILY 07/31/20 Metformin HCl [Metformin HCl ER] 1,000 mg PO WSUPPER 07/31/20 Montelukast Sodium [Singulair 10 mg Tablet] 10 mg PO DAILY 07/31/20 Oxymetazoline HCl [Afrin 0.05% Nasal [place] 15 ml Bottle] 1 spray NASL ASDIR PRN 07/31/20 Pantoprazole Sodium [Protonix [address] Tablet] 40 mg PO DAILY 07/31/20 Telmisartan/Hydrochlorothiazid [Telmisartan-Hctz 40-12.5 mg Tb] 1 each PO DAILY 07/31/20 Tramadol HCl [Ultram 50 mg Tablet] 50 mg PO TID 07/31/20 Allergies/Adverse Reactions: No Known Allergies Allergy (Unverified 01/06/16 09:35) Review of Systems Constitutional: PRESENT: as per HPI Cardiovascular: PRESENT: other - Denies cough no shortness of breath Gastrointestinal: PRESENT: abdominal pain Physical Exam Vital Signs: Temp Pulse Resp BP Pulse Ox 97.5 F 75 16 137/89 H 99 07/31/20 14:46 07/31/20 14:46 07/31/20 14:46 07/31/20 14:46 07/31/20 14:46 Intake & Output 07/30/20 07/31/20 08/01/20 06:59 06:59 06:59 Weight 98.4 kg General appearance: PRESENT: mild distress Eye exam: PRESENT: conjunctiva pink Mouth exam: PRESENT: moist Neck exam: PRESENT: full ROM Respiratory exam: PRESENT: clear to auscultation pedrito Cardiovascular exam: PRESENT: RRR Pulses: PRESENT: normal radial pulses Vascular exam: PRESENT: normal capillary refill GI/Abdominal exam: PRESENT: soft, tenderness - Mild right upper quadrant tenderness Rectal exam: PRESENT: deferred Extremities exam: PRESENT: full ROM Musculoskeletal exam: PRESENT: ambulatory Neurological exam: PRESENT: alert, oriented to person, oriented to place, oriented to time, oriented to situation Psychiatric exam: PRESENT: appropriate affect Skin exam: PRESENT: normal color, warm Results Laboratory Results: 07/31/20 10:25 07/31/20 10:25 07/31/20 07/31/20 10:25 10:25 WBC 4.9 RBC 4.42 Hgb 13.6 Hct 39.2 MCV 89 MCH 30.7 MCHC 34.6 RDW 14.4 H Plt Count 192 Seg Neutrophils % 55.4 Sodium 137.1 Potassium 4.5 Chloride 105 Carbon Dioxide 25 Anion Gap 7 BUN 18 Creatinine 0.95 Est GFR ( Amer) > 60 Glucose 159 H Calcium 9.5 Total Bilirubin 0.9 AST 24 Alkaline Phosphatase 62 Total Protein 6.6 Albumin 3.8 Lipase 119.6 Assessment & Plan - Diagnosis (1) Hepatocellular disease Is this a current diagnosis for this admission?: Yes (2) Cholelithiasis Is this a current diagnosis for this admission?: Yes - Time Time Spent: 30 to 50 Minutes - Inpatient Certification Medical Necessity: Need For IV Fluids, Risk of Complication if Not Cared For in Hospital - Plan Summary Plan Summary: 80-year-old male with insulin-dependent diabetes mellitus complaining of chronic right upper quadrant pains off and on for the past several months. Usually food initiates the pains. Denies any nausea vomiting fever nor chills. She was placed on Eliquis about 2 weeks ago but patient not clear exactly why. He was just told to prevent blood clots. At any rate, he claims he took his last dose about 2 to 3 days ago. He had an ultrasound of the gallbladder on 07/29/2020 which showed cholelithiasis with no evidence of acute cholecystitis. There is increased diffuse hepatocellular disease. He is mildly tender in the right upper quadrant. His white count is normal and all his LFTs are normal. Impression: Cholelithiasis but no definite evidence of acute cholecystitis. Pain some tenderness may be due to hepatocellular disease. If pains continues then may do a HIDA scan to rule out acute cholecystitis.
--- NOTE | 2020-07-31 16:58 | EKG REPORT ---
SEVERITY:- ABNORMAL ECG - SINUS RHYTHM ATRIAL PREMATURE COMPLEX LAD, CONSIDER LEFT ANTERIOR FASCICULAR BLOCK CONSIDER ANTERIOR INFARCT : Confirmed by: Kaleb Nielsen MD 31-Jul-2020 16:57:24
[2020-07-31] MEDS ORDERED: DEXTROSE 50%-WATER 25 GM/50 ML DISP.SYRIN IV PRN ×2 (17:39)
[2020-07-31] MEDS ORDERED: GLUCAGON,HUMAN RECOMB 1 MG INJ IM PRN (17:39)
[2020-07-31] MEDS ORDERED: DEXTROSE 40% GEL 15 GM TUBE PO PRN ×2 (17:39)
[2020-07-31] MEDS ORDERED: ALBUTEROL SULFATE HFA (90 MCG/PUFF) 8 GM MDI (1 MDI/ER DISP) IH PRN (17:40)
[2020-07-31] MEDS ORDERED: ALBUTEROL SULFATE HFA (90 MCG/PUFF) 8 GM MDI IH PRN (17:56)
--- NOTE | 2020-07-31 18:59 | RADIOLOGY REPORT (SQ) ---
EXAM DESCRIPTION: CHEST 2 VIEWS IMAGES COMPLETED DATE/TIME: 07/31/2020 6:36 pm REASON FOR STUDY: RUQ abd. pain COMPARISON: 06/12/2020 EXAM PARAMETERS: NUMBER OF VIEWS: two views TECHNIQUE: Digital Frontal and Lateral radiographic views of the chest acquired. RADIATION DOSE: NA LIMITATIONS: none FINDINGS: LUNGS AND PLEURA: Linear atelectasis in the right lower lung field. MEDIASTINUM AND HILAR STRUCTURES: No masses or contour abnormalities. HEART AND VASCULAR STRUCTURES: Cardiomegaly. No chetan pulmonary edema. BONES: No acute findings. HARDWARE: None in the chest. OTHER: No other significant finding. IMPRESSION: Cardiomegaly without chetan pulmonary edema. TECHNICAL DOCUMENTATION: JOB ID: [id number] 2010 [employer]- All Rights Reserved Reading location - IP/workstation name: [email or web address]
[2020-07-31] MEDS: NORMAL SALINE 1000 ML 1,000 ML IV PRN (19:16)
[2020-07-31] MEDS: ALBUTEROL SULFATE 0.083% NEB 2.5 MG/3 ML AMPUL NEB SCH (19:21)
--- NOTE | 2020-07-31 20:38 | PDOC H&P ---
History of Present Illness Admission Date/PCP: 07/31/20 12:39 ROSENDO EMY Patient complains of: Abdominal pain History of Present Illness: LETTY RODRIGUEZ is a 80 year old male patient new to my practice who presented to the office couple of days ago with complain about worsening intermittent abdominal pain. Patient localized pain to right upper quadrant region with radiation into his upper back and chest region. He reported associated difficulty with breathing. Patient reported pain worsen over preceding 2 weeks and worsen with motion and rated at about 7-8/10. Sitting still does reduce pain intensity to about 3/10. He reported worsening pain with eating, associated nausea but no definite vomiting or radiation of pain to other areas of his abdomen. He denied any definite fever or chills. No constipation or diarrhea. No urinary symptoms to suggest urinary tract infection. His initial ED evaluation was significant for normal chemistry and CBC findings. Due to his recent limited abdominal ultrasound completed on 07/29/2020, advance age, worsening abdominal pain, recurrent ED evaluation, and morbidities he was advised hospitalization for further evaluation and management. His morbidities are as listed below. Past Medical History Cardiac Medical History: Reports: Atrial Fibrillation, Congestive Heart Failure, Hyperlipidema, Hypertension Denies: Coronary Artery Disease, Myocardial Infarction Pulmonary Medical History: Denies: Asthma, Bronchitis, Chronic Obstructive Pulmonary Disease (COPD), Pneumonia EENT Medical History: Reports: Eyes - Glaucoma, Nose - Seasonal allergy Neurological Medical History: Reports: Other - Vertigo; Neuropathy Denies: Seizures Endocrine Medical History: Reports: Diabetes Mellitus Type 2 GI Medical History: Reports: Gastroesophageal Reflux Disease Musculoskeltal Medical History: Denies: Arthritis Psychiatric Medical History: Denies: Depression Hematology: Denies: Anemia Past Surgical History Past Surgical History: Reports: Appendectomy, Orthopedic Surgery Social History Smoking Status: Unknown if Ever Smoked Frequency of Alcohol Use: None Hx Recreational Drug Use: No Drugs: None - Advance Directive Resuscitation Status: Full Code Family History Family History: Reviewed & Not Pertinent Parental Family History Reviewed: Yes Children Family History Reviewed: Yes Sibling(s) Family History Reviewed.: Yes Medication/Allergy Home Medications: Atorvastatin Calcium [Lipitor 20 mg Tablet] 20 mg PO QHS 01/06/16 Insulin Glargine,Hum.rec.anlog [Lantus] 20 unit SQ QPM 01/06/16 NPH, Human Insulin Isophane [Novolin N (NPH) Insulin 100 unit/mL] 4 unit SUBCUT BIDACBS 01/06/16 Furosemide [Lasix 20 mg Tablet] 20 mg PO DAILY #3 tablet 06/09/20 Albuterol Sulfate [Proair Hfa Inhalation Aerosol 8.5 gm Mdi] 2 puff IH Q4 PRN 07/31/20 Albuterol Sulfate [Ventolin 0.083% Neb 2.5 mg/3 ml Ampul] 2.5 mg NEB TID 12/15 Apixaban [Eliquis 2.5 mg Tablet] 1 tab PO BID 07/31/20 Aspirin [Ecotrin 81 mg EC Tablet] 81 mg PO DAILY 07/31/20 Carvedilol [Coreg 3.125 mg Tablet] 3.125 mg PO Q12 07/31/20 Cholecalciferol (Vitamin D3) [Vitamin D3 1000 Unit Tablet] 1,000 unit PO DAILY 07/31/20 Loratadine [Claritin 10 mg Tablet] 10 mg PO DAILY 07/31/20 Metformin HCl [Metformin HCl ER] 1,000 mg PO WSUPPER 07/31/20 Montelukast Sodium [Singulair 10 mg Tablet] 10 mg PO DAILY 07/31/20 Oxymetazoline HCl [Afrin 0.05% Nasal [place] 15 ml Bottle] 1 spray NASL ASDIR PRN 07/31/20 Pantoprazole Sodium [Protonix [address] Tablet] 40 mg PO DAILY 07/31/20 Telmisartan/Hydrochlorothiazid [Telmisartan-Hctz 40-12.5 mg Tb] 1 each PO DAILY 07/31/20 Tramadol HCl [Ultram 50 mg Tablet] 50 mg PO TID 07/31/20 Allergies/Adverse Reactions: No Known Allergies Allergy (Unverified 01/06/16 09:35) Review of Systems Constitutional: ABSENT: chills, fever(s), headache(s), weight gain, weight loss Eyes: ABSENT: visual disturbances Ears: ABSENT: hearing changes Cardiovascular: ABSENT: chest pain, dyspnea on exertion, edema, orthropnea, palpitations Respiratory: ABSENT: cough, hemoptysis Gastrointestinal: PRESENT: abdominal pain, nausea. ABSENT: constipation, diarrhea, hematemesis, hematochezia, vomiting Genitourinary: ABSENT: dysuria, hematuria Musculoskeletal: ABSENT: joint swelling Integumentary: ABSENT: rash, wounds Neurological: ABSENT: abnormal gait, abnormal speech, confusion, dizziness, focal weakness, syncope Psychiatric: ABSENT: anxiety, depression, homidical ideation, suicidal ideation Endocrine: ABSENT: cold intolerance, heat intolerance, polydipsia, polyuria Hematologic/Lymphatic: ABSENT: easy bleeding, easy bruising, lymphadenopathy Physical Exam Vital Signs: Temp Pulse Resp BP Pulse Ox 98.0 F 75 18 133/83 H 99 07/31/20 15:40 07/31/20 15:40 07/31/20 15:40 07/31/20 15:40 07/31/20 15:40 Intake & Output 07/30/20 07/31/20 08/01/20 06:59 06:59 06:59 Weight 98.4 kg General appearance: PRESENT: no acute distress, obese Head exam: PRESENT: atraumatic, normocephalic Eye exam: PRESENT: conjunctiva pink, EOMI, PERRLA. ABSENT: scleral icterus Ear exam: PRESENT: normal external ear exam Mouth exam: PRESENT: moist, tongue midline Neck exam: PRESENT: full ROM. ABSENT: carotid bruit, JVD, lymphadenopathy, thyromegaly Respiratory exam: PRESENT: clear to auscultation pedrito, decreased breath sounds - at lung bases Cardiovascular exam: PRESENT: RRR, +S1, +S2. ABSENT: diastolic murmur, rubs, systolic murmur Pulses: PRESENT: normal dorsalis pedis pul, +2 pedal pulses bilateral Vascular exam: PRESENT: normal capillary refill. ABSENT: pallor GI/Abdominal exam: PRESENT: normal bowel sounds, soft, tenderness - RUQ with positive villarreal sign. ABSENT: distended, guarding, mass, organolmegaly, rebound Rectal exam: PRESENT: deferred Extremities exam: ABSENT: pedal edema Musculoskeletal exam: PRESENT: normal inspection Neurological exam: PRESENT: alert, awake, oriented to person, oriented to place, oriented to time, oriented to situation, CN II-XII grossly intact. ABSENT: motor sensory deficit Psychiatric exam: PRESENT: appropriate affect, normal mood. ABSENT: homicidal ideation, suicidal ideation Skin exam: PRESENT: dry, intact, warm. ABSENT: cyanosis, rash Results Laboratory Results: 07/31/20 10:25 07/31/20 10:25 07/31/20 07/31/20 10:25 10:25 WBC 4.9 RBC 4.42 Hgb 13.6 Hct 39.2 MCV 89 MCH 30.7 MCHC 34.6 RDW 14.4 H Plt Count 192 Seg Neutrophils % 55.4 Sodium 137.1 Potassium 4.5 Chloride 105 Carbon Dioxide 25 Anion Gap 7 BUN 18 Creatinine 0.95 Est GFR ( Amer) > 60 Glucose 159 H Calcium 9.5 Total Bilirubin 0.9 AST 24 Alkaline Phosphatase 62 Total Protein 6.6 Albumin 3.8 Lipase 119.6 Assessment & Plan - Diagnosis (1) Symptomatic cholelithiasis Is this a current diagnosis for this admission?: Yes Plan: See admitting attending physician orders for details about care plan. (2) Diabetes mellitus type 2 in obese Is this a current diagnosis for this admission?: Yes Plan: See admitting attending physician orders for details about care plan. (3) HTN (hypertension) Qualifiers: Hypertension type: essential hypertension Qualified Code(s): I10 - Essential (primary) hypertension Is this a current diagnosis for this admission?: Yes Plan: See admitting attending physician orders for details about care plan. (4) Intermittent atrial fibrillation Is this a current diagnosis for this admission?: Yes Plan: See admitting attending physician orders for details about care plan. (5) HLD (hyperlipidemia) Qualifiers: Hyperlipidemia type: unspecified Qualified Code(s): E78.5 - Hyperlipidemia, unspecified Is this a current diagnosis for this admission?: Yes Plan: See admitting attending physician orders for details about care plan. - Time Time Spent: 50 to 70 Minutes Medications reviewed and adjusted accordingly: Yes Anticipated Discharge Disposition: Home with Home Health Anticipated Discharge Timeframe: within 72 hours - Inpatient Certification Based on my medical assessment, after consideration of the patient's comorbidities, presenting symptoms, or acuity I expect that the services needed warrant INPATIENT care.: Yes I certify that my determination is in accordance with my understanding of Medicare's requirements for reasonable and necessary INPATIENT services [42 CFR 412.3e].: Yes Medical Necessity: Significant Comorbidiites Make Outpatient Treatment Too Risky, Need Close Monitoring Due to Risk of Patient Decompensation, Need For IV Fluids, Need For Continuous Telemetry Monitoring, Need for Pain Control, Need for Surgery, Risk of Complication if Not Cared For in Hospital, Risk of Diagnosis Which Will Require Inpatient Eval/Care/Monitoring Post Hospital Care: D/C Sales Order Processor Documentation - Plan Summary Plan Summary: See admitting attending physician orders for details about care plan.
[2020-07-31] MEDS: CARVEDILOL 3.125 MG TABLET PO SCH (21:56)
[2020-07-31] MEDS: ATORVASTATIN CALCIUM 20 MG TABLET PO SCH (21:57)
[2020-07-31] MEDS: INSULIN LISPRO 100 UNIT/ML 3 ML VIAL SUBCUT SCH (21:57)
--- NOTE | 2020-07-31 22:14 | PDOC CONSULTATION ---
Consultation-Blank Consultation: CARDIOLOGY CONSULTATION by Dr. Skylar Tavera on 07/31/2020. Patient seen at 6 PM. 60 minutes spent as patient more than 50% of time spent in direct patient care. REASON FOR CONSULTATION: Cardiac risk assessment in this patient for possible cholecystectomy CONSULT REQUESTING PHYSICIAN: Dr. Caruso. HISTORY of PRESENT ILLNESS: Patient is a 80-year-old Af[place]er male who looks much younger than his stated age admitted with right upper quadrant pain and diagnosed with gallstones. Hence the patient for possible cholecystectomy. The patient denies any chest pain discomfort. There is no shortness of breath PND orthopnea. He has a prior history of proximal atrial fibrillation at present in sinus rhythm. The patient denies history of coronary artery disease CT or anginal symptoms. There is no history of recent congestive heart failure although in the past he has had a history of congestive heart failure. His chest x-ray shows cardiomegaly but no pulmonary edema. The patient does have a history of hypertension and type 2 insulin-dependent diabetes mellitus. He denies any history of COPD asthma or TIA CVA symptoms. Past Medical History Cardiac Medical History: Reports: History of paroxysmal Atrial Fibrillation, at present in sinus rhythm, Congestive Heart Failure, Hyperlipidema, Hypertension Denies: Coronary Artery Disease, Myocardial Infarction Pulmonary Medical History: Denies: Asthma, Bronchitis, Chronic Obstructive Pulmonary Disease (COPD), Pneumonia EENT Medical History: Reports: Eyes - Glaucoma, Nose - Seasonal allergy Neurological Medical History: Reports: Other - Vertigo; Neuropathy. No history of TIA CVA on Eliquis. Denies: Seizures Endocrine Medical History: Reports: Diabetes Mellitus Type 2, insulin-dependent with neuropathy GI Medical History: Reports: Gastroesophageal Reflux Disease Musculoskeltal Medical History: Denies: Arthritis Psychiatric Medical History: Denies: Depression Hematology: Denies: Anemia Past Surgical History Past Surgical History: Reports: Appendectomy, Orthopedic Surgery Social History Smoking Status: Unknown if Ever Smoked Frequency of Alcohol Use: None Hx Recreational Drug Use: No Drugs: None - Advance Directive Resuscitation Status: Full Code: The patient's is a surrogate healthcare decision maker. Family History Family History: Reviewed & Not Pertinent Parental Family History Reviewed: Yes Children Family History Reviewed: Yes Sibling(s) Family History Reviewed.: Yes Medication/Allergy Home Medications: Atorvastatin Calcium [Lipitor 20 mg Tablet] 20 mg PO QHS 01/06/16 Insulin Glargine,Hum.rec.anlog [Lantus] 20 unit SQ QPM 01/06/16 NPH, Human Insulin Isophane [Novolin N (NPH) Insulin 100 unit/mL] 4 unit SUBCUT BIDACBS 01/06/16 Furosemide [Lasix 20 mg Tablet] 20 mg PO DAILY #3 tablet 06/09/20 Albuterol Sulfate [Proair Hfa Inhalation Aerosol 8.5 gm Mdi] 2 puff IH Q4 PRN 07/31/20 Albuterol Sulfate [Ventolin 0.083% Neb 2.5 mg/3 ml Ampul] 2.5 mg NEB TID 07/31/20 Apixaban [Eliquis 2.5 mg Tablet] 1 tab PO BID 07/31/20 Aspirin [Ecotrin 81 mg EC Tablet] 81 mg PO DAILY 07/31/20 Carvedilol [Coreg 3.125 mg Tablet] 3.125 mg PO Q12 07/31/20 Cholecalciferol (Vitamin D3) [Vitamin D3 1000 Unit Tablet] 1,000 unit PO DAILY 07/31/20 Loratadine [Claritin 10 mg Tablet] 10 mg PO DAILY 07/31/20 Metformin HCl [Metformin HCl ER] 1,000 mg PO WSUPPER 07/31/20 Montelukast Sodium [Singulair 10 mg Tablet] 10 mg PO DAILY 07/31/20 Oxymetazoline HCl [Afrin 0.05% Nasal [place] 15 ml Bottle] 1 spray NASL ASDIR PRN 07/31/20 Pantoprazole Sodium [Protonix [address] Tablet] 40 mg PO DAILY 07/31/20 Telmisartan/Hydrochlorothiazid [Telmisartan-Hctz 40-12.5 mg Tb] 1 each PO DAILY 07/31/20 Tramadol HCl [Ultram 50 mg Tablet] 50 mg PO TID 07/31/20 Allergies/Adverse Reactions: No Known Allergies Allergy (Unverified 01/06/16 09:35) Current Medications Generic Name Dose Route Start Last Admin Trade Name Freq PRN Reason Stop Dose Admin Albuterol 2.5 mg 07/31/20 20:00 07/31/20 19:21 Albuterol Sulfate 0.083% Neb 2.5 Mg/3 Ml Ampul NEB 08/30/20 19:59 2.5 mg RTTID DREA Administration Albuterol 2 puff 07/31/20 17:56 Albuterol Sulfate Hfa (90 Mcg/Puff) 8 Gm Mdi IH 08/30/20 17:55 Q4HP PRN FOR WHEEZING Atorvastatin Calcium 20 mg 07/31/20 22:00 Atorvastatin Calcium 20 Mg Tablet PO 08/30/20 21:59 QHS DREA Carvedilol 3.125 mg 07/31/20 22:00 Carvedilol 3.125 Mg Tablet PO 08/30/20 21:59 Q12 DREA Cholecalciferol 1,000 unit 08/01/20 10:00 Cholecalciferol (D3) 1,000 Unit (25 Mcg) Tablet PO 08/31/20 09:59 DAILY [facility] Dextrose 12.5 gm 07/31/20 17:39 Dextrose 50%-Water 25 Gm/50 Ml Disp.Syrin IV 08/30/20 17:38 PRN PRN FOR BG 50-69 IN ALERT PATIENT Protocol Dextrose 25 gm 07/31/20 17:39 Dextrose 50%-Water 25 Gm/50 Ml Disp.Syrin IV 08/30/20 17:38 PRN PRN PER PROTOCOL Protocol Glucagon 1 mg 07/31/20 17:39 Glucagon,Human Recomb 1 Mg Inj IM 08/30/20 17:38 PRN PRN Evaluate for BG < 70 Protocol Glucose 15 gm 07/31/20 17:39 Dextrose 40% Gel 15 Gm Tube PO 08/30/20 17:38 PRN PRN FOR BG 50-69 IN ALERT PATIENT Protocol Glucose 30 gm 07/31/20 17:39 Dextrose 40% Gel 15 Gm Tube PO 08/30/20 17:38 PRN PRN FOR BG < 50 IN ALERT PATIENT Protocol Sodium Chloride 1,000 mls @ 75 mls/hr 07/31/20 17:37 07/31/20 19:16 Nacl 0.9% 1000 Ml Iv Soln IV 08/30/20 17:36 75 mls/hr CONTINUOUS PRN Administration THIS MED IS NOT "PRN" Insulin Human Lispro 0 - 12 unit 07/31/20 22:00 Insulin Lispro 100 Unit/Ml 3 Ml Vial SUBCUT 08/30/20 21:59 ACHS [facility] Protocol Losartan Potassium 50 mg 08/01/20 10:00 Losartan Potassium 50 Mg Tablet PO 08/31/20 09:59 DAILY DREA Pantoprazole Sodium 40 mg 08/01/20 06:00 Pantoprazole Sodium 40 Mg Tablet. PO 08/31/20 05:59 Q6AM [facility] Review of Systems Constitutional: ABSENT: chills, fever(s), headache(s), weight gain, weight loss Eyes: ABSENT: visual disturbances Ears: ABSENT: hearing changes Cardiovascular: ABSENT: chest pain, dyspnea on exertion, edema, orthropnea, palpitations Respiratory: ABSENT: cough, hemoptysis Gastrointestinal: PRESENT: abdominal pain, nausea. ABSENT: constipation, diar ce, hematemesis, hematochezia, vomiting Genitourinary: ABSENT: dysuria, hematuria Musculoskeletal: ABSENT: joint swelling Integumentary: ABSENT: rash, wounds Neurological: ABSENT: abnormal gait, abnormal speech, confusion, dizziness, focal weakness, syncope Psychiatric: ABSENT: anxiety, depression, homidical ideation, suicidal ideation Endocrine: ABSENT: cold intolerance, heat intolerance, polydipsia, polyuria Hematologic/Lymphatic: ABSENT: easy bleeding, easy bruising, lymphadenopathy Physical Exam: The patient is mildly obese. In no acute distress. Selected Entries 07/31/20 07/31/20 07/31/20 15:40 19:23 20:00 Temperature 98.0 F 97.7 F Temperature Oral Source Pulse Rate 75 93 Respiratory 18 Rate Blood Pressure 133/83 H Blood Pressure 143/76 H [Right Upper Arm] Blood Pressure 98 Mean [Right Upper Arm] Blood Pressure 143 H Systolic [Right Upper Arm] BP Location Right Arm BP Position Supine O2 Sat by Pulse 98 Oximetry Oxygen Delivery Room Air Method ( includes room air) HEAD: Is atraumatic normocephalic. EYES: Pupils are equal round regular reactive to light accommodation. Extraocular movements are normal. There is no conjunctival pallor. There is no scleral icterus. EARS: Tympanic membranes are intact. External auditory canals are clear. NOSE: There is no deviated nasal septum. There is no intranasal nasal mucous membrane. MOUTH: Mucous membranes of mouth are moist. Tongue is moist. There is no ulcers. There is no bleeding from the gums. THROAT: There is no redness of the oropharynx. There is no exudates. SKIN: There is no skin rashes. There is no petechia or ecchymosis. There is no skin lesions. NECK: Is supple. There is no JVD. Carotids are equal there is no bruit there is no lymphadenopathy. There is no goiter. There is no accessory muscle respiration use. Trachea central. LUNGS: Is clear to auscultation percussion. There is no rhonchi rales or wheezing. HEART: S1-S2 is heard. There is no S3 gallop. There is no S4 gallop. There is systolic murmur left sternal border and the apex there is no rub. ABDOMEN: Soft. There is mild discomfort on palpating the right upper quadrant. There is no rebound guarding or rigidity. Bowel sounds are well heard. There is no hepatosplenomegaly. EXTREMITIES: Femorals are well felt. Leg pulses are well felt. There is no femoral bruits. There is no pedal edema. There is no DVT or cellulitis. There is no calf tenderness. NETWORK SUPPORT SPECIALIST: The patient is conscious awake alert oriented x3 with no focal deficits. PSYCHIATRIC: The patient judgment insight are intact his affect is normal. EKG: Shows sinus rhythm. Left anterior fascicular block. Nonspecific IVCD. Cannot exclude old anteroseptal CT. Labs- Entire Visit 07/31/20 07/31/20 07/31/20 10:25 10:25 10:25 WBC 4.9 RBC 4.42 Hgb 13.6 Hct 39.2 MCV 89 MCH 30.7 MCHC 34.6 RDW 14.4 H Plt Count 192 Lymph % (Auto) 26.0 [place] % (Auto) 14.0 H Eos % (Auto) 3.0 Baso % (Auto) 1.6 Absolute Neuts (auto) 2.7 Absolute Lymphs (auto) 1.3 Absolute Monos (auto) 0.7 Absolute Eos (auto) 0.1 Absolute Basos (auto) 0.1 Seg Neutrophils % 55.4 PT 13.7 INR 1.03 Sodium 137.1 Potassium 4.5 Chloride 105 Carbon Dioxide 25 Anion Gap 7 BUN 18 Creatinine 0.95 Est GFR ( Amer) > 60 Est GFR (MDRD) Non-Af > 60 Glucose 159 H POC Glucose Calcium 9.5 Total Bilirubin 0.9 Direct Bilirubin 0.1 Neonat Total Bilirubin Not Reportable Neonat Direct Bilirubin Not Reportable Neonat Indirect Bili Not Reportable AST 24 ALT 18 Alkaline Phosphatase 62 Total Protein 6.6 Albumin 3.8 Lipase 119.6 Influenza A (RT-PCR) Influenza B (RT-PCR) RSV (RT-PCR) SARS-CoV-2 Rap RNA(RT-PCR) 07/31/20 07/31/20 12:49 21:40 WBC RBC Hgb Hct MCV MCH MCHC RDW Plt Count Lymph % (Auto) [place] % (Auto) Eos % (Auto) Baso % (Auto) Absolute Neuts (auto) Absolute Lymphs (auto) Absolute Monos (auto) Absolute Eos (auto) Absolute Basos (auto) Seg Neutrophils % PT INR Sodium Potassium Chloride Carbon Dioxide Anion Gap BUN Creatinine Est GFR ( Amer) Est GFR (MDRD) Non-Af Glucose POC Glucose 172 H Calcium Total Bilirubin Direct Bilirubin Neonat Total Bilirubin Neonat Direct Bilirubin Neonat Indirect Bili AST ALT Alkaline Phosphatase Total Protein Albumin Lipase Influenza A (RT-PCR) NEGATIVE Influenza B (RT-PCR) NEGATIVE RSV (RT-PCR) NEGATIVE SARS-CoV-2 Rap RNA(RT-PCR) NEGATIVE Chest X-Ray 07/31/20 00:00 IMPRESSION: Cardiomegaly without chetan pulmonary edema. ECHOCARDIOGRAM: This is a very poor quality study. There is mild LVH. Normal left ventricle chamber size. Low normal LV ejection fraction of 55%. There is mild mitral regurgitation. There is trace tricuspid regurgitation with no definite evidence of pulmonary hypertension. There is no aortic stenosis or aortic regurgitation. IMPRESSION/RECOMMENDATION: 1. Acute cholelithiasis without cholecystitis. For possible gallbladder vianey kole this admission. 2. Paroxysmal atrial fibrillation: Patient has sinus rhythm. Note that the patient's Eliquis has been held. 3. Hypertension: Blood pressure well controlled 4. 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 5. Cardiomegaly: There is no evidence of congestive heart failure 6. Preoperative cardiac risk assessment. The patient appears to be clinically stable there is no acute cardiac disease in progress. Cardiac status appears to be stable. This is always all right poor quality echo there is no gross abnormalities, hence patient will be at acceptable risk for this gallbladder surgery. Perioperatively looks very adverse cardiovascular events including recurrence of atrial fibrillation, and hence would recommend continue telemetry monitoring. Perioperatively will get serial EKGs and cardiac enzymes. Will follow this is been discussed with the attending provider on the case. Medications reviewed. Medical regimen management plan discussed with attending provider on the case. Medical decision making is of high complexity. 60 minutes spent as patient more than 50% of time spent in review patient care. Will follow
--- NOTE | 2020-07-31 23:49 | XCELERA REPORT ---
[address] [address] Transthoracic Echocardiogram Report Name: LETTY RODRIGUEZ Age: 80 yrs Gender: Male : 1940 Patient Status: Inpatient Patient Location: [address] [place] [address] Study Date: 07/31/2020 08:49 PM Height: 70 in Weight: 216 lb BSA: 2.2 m2 Procedure: A two-dimensional transthoracic echocardiogram with color flow and Doppler was performed. Study Quality: Poor. Reason For Study: RUQ abd. pain; Cardiomegaly; Abn. ECG Chest XRay History: R94.31(Abn.EKG ) Cardiomegaly,Pre-op cardiac risk. Ordering Physician: ROSENDO QUEVEDO Performed By: Teresa Geronimo Interpretation Summary The left ventricle is normal in size. There is mild concentric left ventricular hypertrophy. LV EF is 55% Left ventricular systolic function is low normal. Doppler measurements suggest normal left ventricular diastolic function Cannot assess ASD,VSD,or PFO .Probably no thrombus. The right ventricle is not well visualized secondary to technical limitations Right atrium not well visualized secondary to technical limitations The left atrial size is normal. There is no evidence of mitral valve prolapse. There is no vegetation seen on the mitral valve. There is no mitral valve stenosis. There is a mild amount of mitral regurgitation There is no aortic valvular vegetation. There is no aortic valve stenosis No aortic regurgitation is present. There is no tricuspid stenosis. There is a trace amount of tricuspid regurgitation Tricuspid regurgitation jet envelope not well defined to measure RV systolic pressure accurately. There is no pulmonic valvular stenosis. There is no pulmonic valvular regurgitation. The aortic root is not well visualized but is probably normal size. The inferior vena cava appeared normal and decreased > 50% with respiration (RAP 5-10 mmHg) There is no pericardial effusion. MMode/2D Measurements & Calculations RVDd: 2.9 cm LVIDd: 5.4 cm FS: 28.0 % Ao root diam: 3.0 cm IVSd: 1.5 cm LVIDs: 3.9 cm EDV(Teich): 142.2 ml Ao root area: 6.9 cm2 LVPWd: 1.1 cm ESV(Teich): 65.7 ml LA dimension: 3.9 cm EF(Teich): 53.8 % Doppler Measurements & Calculations MV E max lucero: MV P1/2t max lucero: Ao V2 max: LV V1 max P.7 cm/sec 85.8 cm/sec 91.2 cm/sec 3.8 mmHg MV A max lucero: MV P1/2t: 70.8 msec Ao max PG: LV V1 max: 35.1 cm/sec MVA(P1/2t): 3.1 cm2 3.3 mmHg 97.9 cm/sec MV E/A: 2.7 MV dec slope: 355.1 cm/sec2 MV dec time: 0.15 sec PA V2 max: MV P1/2t-pr_phl: 55.9 cm/sec 70.8 msec PA max P.3 mmHg Left Ventricle The left ventricle is normal in size. There is mild concentric left ventricular hypertrophy. LV EF is 55%. Left ventricular systolic function is low normal. Doppler measurements suggest normal left ventricular diastolic function. The left ventricular wall motion is normal. Cannot assess ASD,VSD,or PFO .Probably no thrombus. Right Ventricle The right ventricle is not well visualized secondary to technical limitations. Atria Right atrium not well visualized secondary to technical limitations. The left atrial size is normal. Mitral Valve There is no evidence of mitral valve prolapse. There is no vegetation seen on the mitral valve. There is no mitral valve stenosis. There is a mild amount of mitral regurgitation. Aortic Valve There is no aortic valvular vegetation. There is no aortic valve stenosis. No aortic regurgitation is present. Tricuspid Valve There is no tricuspid stenosis. There is a trace amount of tricuspid regurgitation. Tricuspid regurgitation jet envelope not well defined to measure RV systolic pressure accurately. Pulmonic Valve There is no pulmonic valvular stenosis. There is no pulmonic valvular regurgitation. Great Vessels The aortic root is not well visualized but is probably normal size. The inferior vena cava appeared normal and decreased > 50% with respiration (RAP 5-10 mmHg). Effusions There is no pericardial effusion. : ROSENDO QUEVEDO Lakshmi
[2020-08-01] MEDS: PANTOPRAZOLE SODIUM 40 MG TABLET.DR PO SCH (06:23)
[2020-08-01 06:30] LABS: HEMATOCRIT 42.1 % (37.9-51.0); HEMOGLOBIN 14.4 g/dL (13.5-17.0); MEAN CORPUSCULAR HEMOGLOBIN 30.6 pg (27.0-33.4); MEAN CORPUSCULAR HGB CONC 34.2 g/dL (32.0-36.0); MEAN CORPUSCULAR VOLUME 89 fl (80-97); PLATELET COUNT 153 10^3/uL (150-450); RED BLOOD COUNT 4.71 10^6/uL (4.35-5.55); RED CELL DISTRIBUTION WIDTH 14.2 % (11.5-14.0); WHITE BLOOD COUNT 7.3 10^3/uL (4.0-10.5)
[2020-08-01 06:49] LABS: ALBUMIN 3.8 g/dL (3.5-5.0); ALKALINE PHOSPHATASE 64 U/L (38-126); ANION GAP 8 (5-19); ASPARTATE AMINO TRANSFERASE 22 U/L (17-59); BILIRUBIN,TOTAL 1.1 mg/dL (0.2-1.3); BLOOD UREA NITROGEN 16 mg/dL (7-20); CALCIUM 9.4 mg/dL (8.4-10.2); CARBON DIOXIDE 22 mmol/L (22-30); CHLORIDE 107 mmol/L (98-107); GLUCOSE 138 mg/dL (75-110); POTASSIUM 4.4 mmol/L (3.6-5.0); TOTAL PROTEIN 6.7 g/dL (6.3-8.2)
[2020-08-01 07:14] LABS: ABSOLUTE LYMPHOCYTES# (MANUAL) 2.3 10^3/uL (0.5-4.7); ABSOLUTE MONOCYTES # (MANUAL) 0.9 10^3/uL (0.1-1.4); BASOPHILS % (MANUAL) 2 % (0-2); EOSINOPHILS % (MANUAL) 1 % (0-6); LYMPHOCYTES % (MANUAL) 32 % (13-45); MONOCYTES % (MANUAL) 13 % (3-13); SEGMENTED NEUTROPHILS % (MAN) 52 % (42-78); TOTAL CELLS COUNTED 100
[2020-08-01 07:16] LABS: ANISOCYTOSIS SLIGHT
[2020-08-01 07:17] LABS: POIKILOCYTOSIS SLIGHT; TEAR DROP CELLS SLIGHT
[2020-08-01 07:18] LABS: PLATELET COMMENT ADEQUATE
[2020-08-01] MEDS: INSULIN LISPRO 100 UNIT/ML 3 ML VIAL SUBCUT SCH ×4 (07:27→21:27)
[2020-08-01] MEDS: ALBUTEROL SULFATE 0.083% NEB 2.5 MG/3 ML AMPUL NEB SCH ×3 (07:39→19:40)
[2020-08-01] MEDS: CHOLECALCIFEROL (D3) 1,000 UNIT (25 MCG) TABLET PO SCH (09:04)
[2020-08-01] MEDS: CARVEDILOL 3.125 MG TABLET PO SCH ×2 (09:04→21:21)
[2020-08-01] MEDS ORDERED: LOSARTAN POTASSIUM 50 MG TABLET PO SCH (10:00)
--- NOTE | 2020-08-01 10:08 | PDOC PROGRESS REPORT ---
Subjective Date:: 08/01/20 Subjective:: Patient is currently doing fair No abdominal pain right now But according to the patient since last 3 days patient is complaining of her pain on and off and not eating much Patient scheduled for the HIDA scan today Reason For Visit: SYMPTOMATIC CHOLELITHIASIS Physical Exam Vital Signs: Temp Pulse Resp BP Pulse Ox 97.5 F 86 16 128/84 H 95 08/01/20 08:57 08/01/20 07:40 08/01/20 07:40 08/01/20 07:37 08/01/20 07:40 Intake & Output 07/31/20 08/01/20 08/02/20 06:59 06:59 06:59 Intake Total 980 Balance 980 Weight 98.4 kg General appearance: PRESENT: no acute distress Eye exam: PRESENT: PERRLA Respiratory exam: PRESENT: clear to auscultation pedrito Cardiovascular exam: PRESENT: +S1, +S2 GI/Abdominal exam: PRESENT: normal bowel sounds, soft Neurological exam: PRESENT: awake, oriented to person, oriented to place, oriented to time, oriented to situation Results Laboratory Results: 08/01/20 05:37 08/01/20 06:23 07/31/20 07/31/20 08/01/20 10:25 10:25 05:37 WBC 4.9 7.3 RBC 4.42 4.71 Hgb 13.6 14.4 Hct 39.2 42.1 MCV 89 89 MCH 30.7 30.6 MCHC 34.6 34.2 RDW 14.4 H 14.2 H Plt Count 192 153 Seg Neutrophils % 55.4 Not Reportable Sodium 137.1 Potassium 4.5 Chloride 105 Carbon Dioxide 25 Anion Gap 7 BUN 18 Creatinine 0.95 Est GFR ( Amer) > 60 Est GFR (Non-Af Amer) Glucose 159 H Calcium 9.5 Total Bilirubin 0.9 AST 24 Alkaline Phosphatase 62 Total Protein 6.6 Albumin 3.8 Lipase 119.6 08/01/20 08/01/20 05:37 06:23 WBC RBC Hgb Hct MCV MCH MCHC RDW Plt Count Seg Neutrophils % Sodium Cancelled 136.9 L Potassium Cancelled 4.4 Chloride Cancelled 107 Carbon Dioxide Cancelled 22 Anion Gap Cancelled 8 BUN Cancelled 16 Creatinine Cancelled 0.89 Est GFR ( Amer) Cancelled > 60 Est GFR (Non-Af Amer) Cancelled Glucose Cancelled 138 H Calcium Cancelled 9.4 Total Bilirubin Cancelled 1.1 AST Cancelled 22 Alkaline Phosphatase Cancelled 64 Total Protein Cancelled 6.7 Albumin Cancelled 3.8 Lipase Impressions: Chest X-Ray 07/31/20 00:00 IMPRESSION: Cardiomegaly without chetan pulmonary edema. Assessment & Plan - Diagnosis (1) Cholelithiasis Is this a current diagnosis for this admission?: Yes (2) Diabetes mellitus type 2 in obese Is this a current diagnosis for this admission?: Yes (3) HLD (hyperlipidemia) Qualifiers: Hyperlipidemia type: unspecified Qualified Code(s): E78.5 - Hyperlipidemia, unspecified Is this a current diagnosis for this admission?: Yes (4) HTN (hypertension) Qualifiers: Hypertension type: essential hypertension Qualified Code(s): I10 - Essential (primary) hypertension Is this a current diagnosis for this admission?: Yes (5) Hepatocellular disease Is this a current diagnosis for this admission?: Yes (6) Intermittent atrial fibrillation Is this a current diagnosis for this admission?: Yes - Time Time Spent with patient: 15-24 minutes Level of Care: TELE Medications reviewed and adjusted accordingly: Yes Anticipated discharge: Home Anticipated DC Timeframe: Other - Plan Summary Plan Summary: Continues to current medications follow-up with the cardiology Patient scheduled for the HIDA scan today
[2020-08-01] MEDS: NORMAL SALINE 1000 ML 1,000 ML IV PRN (10:34)
--- NOTE | 2020-08-01 11:06 | RADIOLOGY REPORT (SQ) ---
EXAM DESCRIPTION: NM HIDA SCAN IMAGES COMPLETED DATE/TIME: 08/01/2020 10:55 am REASON FOR STUDY: RUQ abd. pain, gallstones on US COMPARISON: None. RADIONUCLIDE AND DOSE: DOSAGE RADIONUCLIDE: 5.4 millicuries Tc99m Mebrofenin. DOSAGE MORPHINE: Not required. The route of agent administration: Intravenous TECHNIQUE: Serial imaging right upper quadrant up to 60 minutes following injection of radionuclide. Patient imaged AP and Right Lateral. LIMITATIONS: None. FINDINGS: LIVER: Normal visualization without areas of photopenia. INTRA-HEPATIC BILE DUCTS: Temporal visualization normal. No dilatation. COMMON BILE DUCT: Normal without dilatation or delayed visualization. GALLBLADDER: Normal visualization. OTHER: No other significant finding. IMPRESSION: NORMAL STUDY WITHOUT CYSTIC OR COMMON DUCT OBSTRUCTION. TECHNICAL DOCUMENTATION: JOB ID: [id number] 2010 [email or web address]- All Rights Reserved Reading location - IP/workstation name: [email or web address]
--- NOTE | 2020-08-01 11:35 | PDOC PROGRESS REPORT ---
Subjective Date:: 08/01/20 Reason For Visit: SYMPTOMATIC CHOLELITHIASIS Physical Exam Vital Signs: Temp Pulse Resp BP Pulse Ox 97.5 F 86 16 128/84 H 95 08/01/20 08:57 08/01/20 07:40 08/01/20 07:40 08/01/20 07:37 08/01/20 07:40 Intake & Output 07/31/20 08/01/20 08/02/20 06:59 06:59 06:59 Intake Total 980 1000 Balance 980 1000 Weight 98.4 kg Results Laboratory Results: 08/01/20 05:37 08/01/20 06:23 08/01/20 08/01/20 08/01/20 05:37 05:37 06:23 WBC 7.3 RBC 4.71 Hgb 14.4 Hct 42.1 MCV 89 MCH 30.6 MCHC 34.2 RDW 14.2 H Plt Count 153 Seg Neutrophils % Not Reportable Sodium Cancelled 136.9 L Potassium Cancelled 4.4 Chloride Cancelled 107 Carbon Dioxide Cancelled 22 Anion Gap Cancelled 8 BUN Cancelled 16 Creatinine Cancelled 0.89 Est GFR ( Amer) Cancelled > 60 Est GFR (Non-Af Amer) Cancelled Glucose Cancelled 138 H Calcium Cancelled 9.4 Total Bilirubin Cancelled 1.1 AST Cancelled 22 Alkaline Phosphatase Cancelled 64 Total Protein Cancelled 6.7 Albumin Cancelled 3.8 Impressions: Chest X-Ray 07/31/20 00:00 IMPRESSION: Cardiomegaly without chetan pulmonary edema. Hepatobiliary Scan Nuclear Medicine 08/01/20 09:00 IMPRESSION: NORMAL STUDY WITHOUT CYSTIC OR COMMON DUCT OBSTRUCTION. Assessment & Plan - Diagnosis (1) Hepatocellular disease Is this a current diagnosis for this admission?: Yes (2) Cholelithiasis Is this a current diagnosis for this admission?: Yes - Time Anticipated Discharge Disposition: Home with Home Health Anticipated Discharge Timeframe: within 48 hours - Inpatient Certification Medical Necessity: Significant Comorbidiites Make Outpatient Treatment Too Risky - Plan Summary Plan Summary: HIDA scan is normal no cystic or common duct obstruction. We will sign off but we can follow-up the patient in the clinic for his gallstones
--- NOTE | 2020-08-01 18:11 | Progress Note ---
Provider Note Provider Note: CARDIOLOGY PROGRESS NOTE by Dr. Skylar Tavera on 08/01/2020. OBJECTIVE: The patient still states that he has right upper quadrant pain after eating and with activity. He denies any chest pain or discomfort. There is no shortness of breath. There is no PND orthopnea or leg edema. There is no arrhythmias seen on the monitor. PHYSICAL EXAMINATION: The patient is mildly obese. In no acute distress Selected Entries 08/01/20 11:02 Temperature 97.5 F Temperature Oral Source Pulse Rate 84 Respiratory 16 Rate Blood Pressure 121/76 Blood Pressure 91 Mean BP Location Right Arm BP Position Sitting O2 Sat by Pulse 99 Oximetry Oxygen Delivery Room Air Method HEAD: Is atraumatic normocephalic. EYES: Pupils are equal round regular reactive to light accommodation. Extraocular movements are normal. There is no conjunctival pallor. There is no scleral icterus. EARS: Tympanic membranes are intact. External auditory canals are clear. NOSE: There is no deviated nasal septum. There is no intranasal nasal mucous membrane. MOUTH: Mucous membranes of mouth are moist. Tongue is moist. There is no ulcers. There is no bleeding from the gums. THROAT: There is no redness of the oropharynx. There is no exudates. SKIN: There is no skin rashes. There is no petechia or ecchymosis. There is no skin lesions. NECK: Is supple. There is no JVD. Carotids are equal there is no bruit there is no lymphadenopathy. There is no goiter. There is no accessory muscle respiration use. Trachea central. LUNGS: Is clear to auscultation percussion. There is no rhonchi rales or wheezing. HEART: S1-S2 is heard. There is no S3 gallop. There is no S4 gallop. There is systolic murmur left sternal border and the apex there is no rub. ABDOMEN: Soft. There is mild discomfort on palpating the right upper quadrant. There is no rebound guarding or rigidity. Bowel sounds are well heard. There is no hepatosplenomegaly. EXTREMITIES: Femorals are well felt. Leg pulses are well felt. There is no femoral bruits. There is no pedal edema. There is no DVT or cellulitis. There is no calf tenderness. [place]: The patient is conscious awake alert oriented x3 with no focal deficits. PSYCHIATRIC: The patient judgment insight are intact his affect is normal. Labs- All tests 24 hr 07/31/20 07/31/20 08/01/20 21:40 23:59 05:37 WBC 7.3 RBC 4.71 Hgb 14.4 Hct 42.1 MCV 89 MCH 30.6 MCHC 34.2 RDW 14.2 H Plt Count 153 Lymph % (Auto) Not Reportable [place] % (Auto) Not Reportable Eos % (Auto) Not Reportable Baso % (Auto) Not Reportable Absolute Neuts (auto) Not Reportable Absolute Lymphs (auto) Not Reportable Absolute Monos (auto) Not Reportable Absolute Eos (auto) Not Reportable Absolute Basos (auto) Not Reportable Total Counted 100 Seg Neutrophils % Not Reportable Seg Neuts % (Manual) 52 Lymphocytes % (Manual) 32 Monocytes % (Manual) 13 Eosinophils % (Manual) 1 Basophils % (Manual) 2 Abs Neuts (Manual) 3.8 Abs Lymphs (Manual) 2.3 Abs Monocytes (Manual) 0.9 Absolute Eos (Manual) 0.1 Abs Basophils (Manual) 0.1 Platelet Comment ADEQUATE Poikilocytosis SLIGHT Anisocytosis SLIGHT Tear Drop Cells SLIGHT Sodium Potassium Chloride Carbon Dioxide Anion Gap BUN Creatinine Est GFR ( Amer) Est GFR (Non-Af Amer) Est GFR (MDRD) Non-Af Glucose POC Glucose 172 H 143 H Calcium Total Bilirubin Direct Bilirubin Neonat Total Bilirubin Neonat Direct Bilirubin Neonat Indirect Bili AST ALT Alkaline Phosphatase Total Protein Albumin EGFR 08/01/20 08/01/20 08/01/20 05:37 05:55 06:23 WBC RBC Hgb Hct MCV MCH MCHC RDW Plt Count Lymph % (Auto) [place] % (Auto) Eos % (Auto) Baso % (Auto) Absolute Neuts (auto) Absolute Lymphs (auto) Absolute Monos (auto) Absolute Eos (auto) Absolute Basos (auto) Total Counted Seg Neutrophils % Seg Neuts % (Manual) Lymphocytes % (Manual) Monocytes % (Manual) Eosinophils % (Manual) Basophils % (Manual) Abs Neuts (Manual) Abs Lymphs (Manual) Abs Monocytes (Manual) Absolute Eos (Manual) Abs Basophils (Manual) Platelet Comment Poikilocytosis Anisocytosis Tear Drop Cells Sodium Cancelled 136.9 L Potassium Cancelled 4.4 Chloride Cancelled 107 Carbon Dioxide Cancelled 22 Anion Gap Cancelled 8 BUN Cancelled 16 Creatinine Cancelled 0.89 Est GFR ( Amer) Cancelled > 60 Est GFR (Non-Af Amer) Cancelled Est GFR (MDRD) Non-Af Cancelled > 60 Glucose Cancelled 138 H POC Glucose 154 H Calcium Cancelled 9.4 Total Bilirubin Cancelled 1.1 Direct Bilirubin Cancelled 0.0 Neonat Total Bilirubin Cancelled Not Reportable Neonat Direct Bilirubin Cancelled Not Reportable Neonat Indirect Bili Cancelled Not Reportable AST Cancelled 22 ALT Cancelled 15 Alkaline Phosphatase Cancelled 64 Total Protein Cancelled 6.7 Albumin Cancelled 3.8 EGFR Cancelled 08/01/20 08/01/20 11:43 15:19 WBC RBC Hgb Hct MCV MCH MCHC RDW Plt Count Lymph % (Auto) [place] % (Auto) Eos % (Auto) Baso % (Auto) Absolute Neuts (auto) Absolute Lymphs (auto) Absolute Monos (auto) Absolute Eos (auto) Absolute Basos (auto) Total Counted Seg Neutrophils % Seg Neuts % (Manual) Lymphocytes % (Manual) Monocytes % (Manual) Eosinophils % (Manual) Basophils % (Manual) Abs Neuts (Manual) Abs Lymphs (Manual) Abs Monocytes (Manual) Absolute Eos (Manual) Abs Basophils (Manual) Platelet Comment Poikilocytosis Anisocytosis Tear Drop Cells Sodium Potassium Chloride Carbon Dioxide Anion Gap BUN Creatinine Est GFR ( Amer) Est GFR (Non-Af Amer) Est GFR (MDRD) Non-Af Glucose POC Glucose 119 H 189 H Calcium Total Bilirubin Direct Bilirubin Neonat Total Bilirubin Neonat Direct Bilirubin Neonat Indirect Bili AST ALT Alkaline Phosphatase Total Protein Albumin EGFR Chest X-Ray 07/31/20 00:00 IMPRESSION: Cardiomegaly without chetan pulmonary edema. Hepatobiliary Scan Nuclear Medicine 08/01/20 09:00 IMPRESSION: NORMAL STUDY WITHOUT CYSTIC OR COMMON DUCT OBSTRUCTION. IMPRESSION/RECOMMENDATION: 1. Acute cholelithiasis without cholecystitis. Patient's HIDA scan is negative. Hence the surgeon's opined that there is no indication for immediate surgery at present. They think the patient's symptoms of pain in the right upper quadrant is secondary to his hepatocellular disease. The patient's echocardiogram was of poor quality. We will see if we can get a limited follow- up echo to assess for pulmonary hypertension the service pulmonary hypertension. 2. Paroxysmal atrial fibrillation: Patient has sinus rhythm. Note that the patient's Eliquis has been held. 3. Hypertension: Blood pressure well controlled 4. 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 5. Cardiomegaly: There is no evidence of congestive heart failure Medications reviewed. Medical regimen management plan discussed with attending provider on the case. Medical decision making is of moderate complexity. 40 minutes spent as patient more than 50% of time spent in review patient care. Will follow
[2020-08-01] MEDS: ATORVASTATIN CALCIUM 20 MG TABLET PO SCH (21:21)
[2020-08-01] MEDS: LOSARTAN POTASSIUM 50 MG TABLET PO SCH (21:21)
[2020-08-02] MEDS: NORMAL SALINE 1000 ML 1,000 ML IV PRN (02:55)
[2020-08-02] MEDS: PANTOPRAZOLE SODIUM 40 MG TABLET.DR PO SCH (06:27)
[2020-08-02] MEDS: INSULIN LISPRO 100 UNIT/ML 3 ML VIAL SUBCUT SCH ×2 (07:50→12:05)
[2020-08-02] MEDS: ALBUTEROL SULFATE 0.083% NEB 2.5 MG/3 ML AMPUL NEB SCH (07:52)
[2020-08-02] MEDS: CARVEDILOL 3.125 MG TABLET PO SCH (09:42)
[2020-08-02] MEDS: CHOLECALCIFEROL (D3) 1,000 UNIT (25 MCG) TABLET PO SCH (09:42)
[2020-08-02] MEDS: LOSARTAN POTASSIUM 50 MG TABLET PO SCH (09:42)
--- NOTE | 2020-08-02 10:01 | PDOC DISCHARGE SUMMARY ---
Impression - Admit/DC Date/PCP Admission Date/Primary Care Provider: 07/31/20 12:39 ROSENDO QUEVEDO Discharge Date: 08/02/20 - Discharge Diagnosis (1) Cholelithiasis Is this a current diagnosis for this admission?: Yes (2) Diabetes mellitus type 2 in obese Is this a current diagnosis for this admission?: Yes (3) HLD (hyperlipidemia) Is this a current diagnosis for this admission?: Yes (4) HTN (hypertension) Is this a current diagnosis for this admission?: Yes (5) Hepatocellular disease Is this a current diagnosis for this admission?: Yes (6) Intermittent atrial fibrillation Is this a current diagnosis for this admission?: Yes - Additional Information Resuscitation Status: Full Code Discharge Diet: Cardiac Referrals: ROSENDO QUEVEDO MD [Primary Care Provider] - Follow up as needed Prescriptions: Losartan Potassium [Cozaar 50 mg Tablet] 50 mg PO Q12 #60 tablet Home Medications: Atorvastatin Calcium [Lipitor 20 mg Tablet] 20 mg PO QHS 01/06/16 Insulin Glargine,Hum.rec.anlog [Lantus] 20 unit SQ QPM 01/06/16 NPH, Human Insulin Isophane [Novolin N (NPH) Insulin 100 unit/mL] 4 unit SUBCUT BIDACBS 01/06/16 Furosemide [Lasix 20 mg Tablet] 20 mg PO DAILY #3 tablet 06/09/20 Albuterol Sulfate [Proair HFA Inhalation Aerosol 8.5 gm MDI] 2 puff IH Q4 PRN 07/31/20 Albuterol Sulfate [Ventolin 0.083% Neb 2.5 mg/3 mL Ampul] 2.5 mg NEB TID 07/31/20 Apixaban [Eliquis 2.5 mg Tablet] 1 tab PO BID 07/31/20 Aspirin [Ecotrin 81 mg EC Tablet] 81 mg PO DAILY 07/31/20 Carvedilol [Coreg 3.125 mg Tablet] 3.125 mg PO Q12 07/31/20 Cholecalciferol (Vitamin D3) [Vitamin D3 1000 Unit Tablet] 1,000 unit PO DAILY 07/31/20 Loratadine [Claritin 10 mg Tablet] 10 mg PO DAILY 07/31/20 Metformin HCl [Metformin HCl ER] 1,000 mg PO WSUPPER 07/31/20 Montelukast Sodium [Singulair 10 mg Tablet] 10 mg PO DAILY 07/31/20 Oxymetazoline HCl [Afrin 0.05% Nasal [place] 15 ml Bottle] 1 spray NASL ASDIR PRN 07/31/20 Pantoprazole Sodium [Protonix [address] Tablet] 40 mg PO DAILY 07/31/20 Tramadol HCl [Ultram 50 mg Tablet] 50 mg PO TID 07/31/20 Losartan Potassium [Cozaar 50 mg Tablet] 50 mg PO Q12 #60 tablet 08/02/20 History of Present Illiness History of Present Illness: LETTY RODRIGUEZ is a 80 year old male Patient was admitting in the hospital for the right-sided upper quadrant pain with cholelithiasis and further evaluations with a history of the paroxysmal A. fib and hypertension liver disease Hospital Course Hospital Course: Is a 80-year-old male admitting in the hospital for the right-sided upper quadrant pain for cholelithiasis Patient also have a history of the cardiomegaly and A. fib Patient is at this point seen by the general surgery for possible surgical interventions underwent for the HIDA scans which is no acute findings and according to the surgeons no need for surgical intervention and follow outpatients Patient seen by the cardiology Dr. Torres suggest the continues to Lasix 20 mg and discontinued the hydrochlorothiazide and follow outpatients for further evaluation about the echocardiogram to further rule out any right-sided heart failure Patient should continues the Eliquis for paroxysmal A. fib currently in sinus rhythms Patient's Micardis was discontinued on report of the losartan 50 mg twice a day Discussed with the patient's to follow-up with the cardiology Dr. Torres for further evaluations and for follow-up with Dr. Quevedo Physical Exam Vital Signs: Temp Pulse Resp BP Pulse Ox 97.8 F 87 16 130/72 H 97 08/02/20 08:00 08/02/20 07:55 08/02/20 07:55 08/02/20 07:41 08/02/20 07:55 Intake & Output 08/01/20 08/02/20 08/03/20 06:59 06:59 06:59 Intake Total 980 2221 200 Output Total 0 Balance 980 2221 200 Weight 98.4 kg General appearance: PRESENT: no acute distress, well-developed, well-nourished Head exam: PRESENT: atraumatic, normocephalic Eye exam: PRESENT: conjunctiva pink, EOMI, PERRLA. ABSENT: scleral icterus Ear exam: PRESENT: normal external ear exam Mouth exam: PRESENT: moist, tongue midline Neck exam: ABSENT: carotid bruit, JVD, lymphadenopathy, thyromegaly Respiratory exam: PRESENT: clear to auscultation pedrito. ABSENT: rales, rhonchi, wheezes Cardiovascular exam: PRESENT: RRR. ABSENT: diastolic murmur, rubs, systolic murmur Pulses: PRESENT: normal dorsalis pedis pul Vascular exam: PRESENT: normal capillary refill GI/Abdominal exam: PRESENT: normal bowel sounds, soft. ABSENT: distended, guarding, mass, organolmegaly, rebound, tenderness Rectal exam: PRESENT: deferred Extremities exam: PRESENT: full ROM. ABSENT: calf tenderness, clubbing, pedal edema Neurological exam: PRESENT: alert, awake, oriented to person, oriented to place, oriented to time, oriented to situation, CN II-XII grossly intact. ABSENT: motor sensory deficit Psychiatric exam: PRESENT: appropriate affect, normal mood. ABSENT: homicidal ideation, suicidal ideation Skin exam: PRESENT: dry, intact, warm. ABSENT: cyanosis, rash Results Laboratory Results: WBC 7.3 10^3/uL (4.0-10.5) 08/01/20 05:37 RBC 4.71 10^6/uL (4.35-5.55) 08/01/20 05:37 Hgb 14.4 g/dL (13.5-17.0) 08/01/20 05:37 Hct 42.1 % (37.9-51.0) 08/01/20 05:37 MCV 89 fl (80-97) 08/01/20 05:37 MCH 30.6 pg (27.0-33.4) 08/01/20 05:37 MCHC 34.2 g/dL (32.0-36.0) 08/01/20 05:37 RDW 14.2 % (11.5-14.0) H 08/01/20 05:37 Plt Count 153 10^3/uL (150-450) 08/01/20 05:37 Lymph % (Auto) Not Reportable 08/01/20 05:37 [place] % (Auto) Not Reportable 08/01/20 05:37 Eos % (Auto) Not Reportable 08/01/20 05:37 Baso % (Auto) Not Reportable 08/01/20 05:37 Absolute Neuts (auto) Not Reportable 08/01/20 05:37 Absolute Lymphs (auto) Not Reportable 08/01/20 05:37 Absolute Monos (auto) Not Reportable 08/01/20 05:37 Absolute Eos (auto) Not Reportable 08/01/20 05:37 Absolute Basos (auto) Not Reportable 08/01/20 05:37 Total Counted 100 08/01/20 05:37 Seg Neutrophils % Not Reportable 08/01/20 05:37 Seg Neuts % (Manual) 52 % (42-78) 08/01/20 05:37 Lymphocytes % (Manual) 32 % (13-45) 08/01/20 05:37 Monocytes % (Manual) 13 % (3-13) 08/01/20 05:37 Eosinophils % (Manual) 1 % (0-6) 08/01/20 05:37 Basophils % (Manual) 2 % (0-2) 08/01/20 05:37 Abs Neuts (Manual) 3.8 10^3/uL (1.7-8.2) 08/01/20 05:37 Abs Lymphs (Manual) 2.3 10^3/uL (0.5-4.7) 08/01/20 05:37 Abs Monocytes (Manual) 0.9 10^3/uL (0.1-1.4) 08/01/20 05:37 Absolute Eos (Manual) 0.1 10^3/uL (0.0-0.6) 08/01/20 05:37 Abs Basophils (Manual) 0.1 10^3/uL (0.0-0.2) 08/01/20 05:37 Platelet Comment ADEQUATE 08/01/20 05:37 Poikilocytosis SLIGHT 08/01/20 05:37 Anisocytosis SLIGHT 08/01/20 05:37 Tear Drop Cells SLIGHT 08/01/20 05:37 PT 13.7 SEC (11.4-15.4) 07/31/20 10:25 INR 1.03 07/31/20 10:25 Sodium 136.9 mmol/L (137-145) L 08/01/20 06:23 Potassium 4.4 mmol/L (3.6-5.0) 08/01/20 06:23 Chloride 107 mmol/L (98-107) 08/01/20 06:23 Carbon Dioxide 22 mmol/L (22-30) 08/01/20 06:23 Anion Gap 8 (5-19) 08/01/20 06:23 BUN 16 mg/dL (7-20) 08/01/20 06:23 Creatinine 0.89 mg/dL (0.52-1.25) 08/01/20 06:23 Est GFR ( Amer) > 60 (>60) 08/01/20 06:23 Est GFR (Non-Af Amer) Cancelled 08/01/20 05:37 Est GFR (MDRD) Non-Af > 60 (>60) 08/01/20 06:23 Glucose 138 mg/dL (75-110) H 08/01/20 06:23 POC Glucose 126 mg/dL (70-110) H 08/02/20 07:39 Calcium 9.4 mg/dL (8.4-10.2) 08/01/20 06:23 Magnesium 1.7 mg/dL (1.6-2.3) 08/01/20 10:25 Total Bilirubin 1.1 mg/dL (0.2-1.3) 08/01/20 06:23 Direct Bilirubin 0.0 mg/dL (0.0-0.4) 08/01/20 06:23 Neonat Total Bilirubin Not Reportable 08/01/20 06:23 Neonat Direct Bilirubin Not Reportable 08/01/20 06:23 Neonat Indirect Bili Not Reportable 08/01/20 06:23 AST 22 U/L (17-59) 08/01/20 06:23 ALT 15 U/L (<50) 08/01/20 06:23 Alkaline Phosphatase 64 U/L (38-126) 08/01/20 06:23 Total Protein 6.7 g/dL (6.3-8.2) 08/01/20 06:23 Albumin 3.8 g/dL (3.5-5.0) 08/01/20 06:23 Lipase 119.6 U/L (23-300) 07/31/20 10:25 EGFR Cancelled 08/01/20 05:37 Influenza A (RT-PCR) NEGATIVE (NEGATIVE) 07/31/20 12:49 Influenza B (RT-PCR) NEGATIVE (NEGATIVE) 07/31/20 12:49 RSV (RT-PCR) NEGATIVE (NEGATIVE) 07/31/20 12:49 SARS-CoV-2 Rap RNA(RT-PCR) NEGATIVE (NEGATIVE) 07/31/20 12:49 Impressions: Chest X-Ray 07/31/20 00:00 IMPRESSION: Cardiomegaly without chetan pulmonary edema. Hepatobiliary Scan Nuclear Medicine 08/01/20 09:00 IMPRESSION: NORMAL STUDY WITHOUT CYSTIC OR COMMON DUCT OBSTRUCTION. Plan Time Spent: Greater than 30 Minutes - Follow-up with the Dr. Quevedo in a cardiology Stroke Is this a Stroke Patient?: No Acute Heart Failure Is this a Heart Failure Patient?: No
--- NOTE | 2020-08-02 13:47 | Progress Note ---
Provider Note Provider Note: CARDIOLOGY PROGRESS NOTE by Dr. Skylar Tavera on 08/02/2020. PROGRESS NOTE: The patient denies any further right upper quadrant pain. There is no nausea or vomiting. There is no no anginal symptoms. There is no PND orthopnea or leg edema. There is no recurrence of the patient's he had a few PVCs yesterday. His potassium and magnesium were normal. There is no further PVCs or any other arrhythmia. There is no recurrence of atrial fibrillation. PHYSICAL EXAMINATION: The patient mildly obese in no acute distress. Selected Entries 08/02/20 08/02/20 11:26 13:45 Temperature 98.0 F 98.0 F Temperature Oral Source Pulse Rate 72 72 Respiratory 17 17 Rate Blood Pressure 110/72 Blood Pressure 143/76 H [Right Upper Arm] Blood Pressure 84 Mean BP Location Right Arm BP Position Sitting O2 Sat by Pulse 94 96 Oximetry Oxygen Delivery Room Air Method HEAD: Is atraumatic normocephalic. EYES: Pupils are equal round regular reactive to light accommodation. Extraocular movements are normal. There is no conjunctival pallor. There is no scleral icterus. EARS: Tympanic membranes are intact. External auditory canals are clear. NOSE: There is no deviated nasal septum. There is no intranasal nasal mucous membrane. MOUTH: Mucous membranes of mouth are moist. Tongue is moist. There is no ulcers. There is no bleeding from the gums. THROAT: There is no redness of the oropharynx. There is no exudates. SKIN: There is no skin rashes. There is no petechia or ecchymosis. There is no skin lesions. NECK: Is supple. There is no JVD. Carotids are equal there is no bruit there is no lymphadenopathy. There is no goiter. There is no accessory muscle respiration use. Trachea central. LUNGS: Is clear to auscultation percussion. There is no rhonchi rales or wheezing. HEART: S1-S2 is heard. There is no S3 gallop. There is no S4 gallop. There is systolic murmur left sternal border and the apex there is no rub. ABDOMEN: Soft. There is today no discomfort on palpating the right upper quadrant. There is no rebound guarding or rigidity. Bowel sounds are well heard. There is no hepatosplenomegaly. EXTREMITIES: Femorals are well felt. Leg pulses are well felt. There is no femoral bruits. There is no pedal edema. There is no DVT or cellulitis. There is no calf tenderness. SHIPS EQUIPMENT ENGINEER: The patient is conscious awake alert oriented x3 with no focal deficits. PSYCHIATRIC: The patient judgment insight are intact his affect is normal. Chest X-Ray 07/31/20 00:00 IMPRESSION: Cardiomegaly without chetan pulmonary edema. Hepatobiliary Scan Nuclear Medicine 08/01/20 09:00 IMPRESSION: NORMAL STUDY WITHOUT CYSTIC OR COMMON DUCT OBSTRUCTION. Labs- All tests 24 hr 08/01/20 08/01/20 08/02/20 10:25 21:24 07:39 POC Glucose 154 H 126 H Magnesium 1.7 08/02/20 11:28 POC Glucose 162 H Magnesium IMPRESSION/RECOMMENDATION: 1. Right upper quadrant pain:? Etiology.? Secondary to liver disease. As mentioned earlier the patient's echocardiogram is a poor quality. We will try to get a limited echo to assess pulmonary hypertension in the office. 2. Cholelithiasis: Surgeons feel that the patient's symptoms of right upper quadrant pain is not from this. 3. Paroxysmal atrial fibrillation: Patient has sinus rhythm. Note that the patient's Eliquis has been held. 4. Hypertension: Blood pressure well controlled 5. 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 6. Cardiomegaly: There is no evidence of congestive heart failure 7. Multiple CAD risk factors namely abnormal EKG, hypertension, age, hyperlipidemia and diabetes mellitus. Would recommend the patient have an outpatient IV Lexiscan Cardiolite stress test. This will be arranged as an outpatient in the office. Medications reviewed. Medical regimen management plan discussed with attending provider on the case. Medical decision making is of moderate complexity. 40 minutes spent as patient more than 50% of time spent in review patient care. Will sign off and follow the patient in the office. The patient has an appointment to see me on August 06 at 1230 in the office. The patient and made aware of this.
[2020-08-02 13:57] VITALS: BP 143/76
== END 2020-08-02 14:23 | disposition home or self-care (01) ==
LOC: ER 09:41 → EH 12:39 → INTOOBSV 12:39 → 5 15:53
PROVIDERS: ADMIT Internal Medicine Geriatric Medicine; ATTEND Internal Medicine Geriatric Medicine
DX: K80.20 Calculus of gallbladder without cholecystitis without obstruction (principal); E11.42 Type 2 diabetes mellitus with diabetic polyneuropathy; E66.9 Obesity, unspecified; E78.5 Hyperlipidemia, unspecified; I11.9 Hypertensive heart disease without heart failure; K76.9 Liver disease, unspecified; I48.0 Paroxysmal atrial fibrillation; I44.4 Left anterior fascicular block; K21.9 Gastro-esophageal reflux disease without esophagitis; Z79.01 Long term (current) use of anticoagulants; Z20.828 Contact with and (suspected) exposure to other viral communicable diseases; Z79.899 Other long term (current) drug therapy; Z79.4 Long term (current) use of insulin; Z90.49 Acquired absence of other specified parts of digestive tract; Z79.82 Long term (current) use of aspirin
CPT/HCPCS: 93005; 99285; 36415 ×2; 82962 ×3; 83690; 83735; 85025 ×2; 85610; 0241U ×4; 80053 ×2; 93306; 71046; 78226; 94799; 93010; 94640 ×3; G0378 ×2; A9537; A9270 ×15; J7030 ×3; Q9969; C9803; J1815; J3490; J7613

== ENCOUNTER 2020-08-12 09:05 | Day surgery (SDC) | payer MEDICARE, OTHER ==
[~2020-08-12 09:05] MED LIST: BUPIVACAINE HCL 0.25 % INJ/PF (2.5 MG/1 ML) 30 ML VIAL ONE; FENTANYL CITRATE INJ/PF 100 MCG/2 ML AMPUL ONE; MIDAZOLAM 2 MG/2 ML INJ ONE; PROPOFOL INJ 200 MG/20 ML VIAL IV ONE
[2020-08-12 10:22] LABS: HEMATOCRIT 41.7 % (37.9-51.0); HEMOGLOBIN 14.2 g/dL (13.5-17.0); MEAN CORPUSCULAR HEMOGLOBIN 30.3 pg (27.0-33.4); MEAN CORPUSCULAR HGB CONC 33.9 g/dL (32.0-36.0); MEAN CORPUSCULAR VOLUME 89 fl (80-97); PLATELET COUNT 173 10^3/uL (150-450); RED BLOOD COUNT 4.68 10^6/uL (4.35-5.55); RED CELL DISTRIBUTION WIDTH 14.6 % (11.5-14.0); WHITE BLOOD COUNT 5.7 10^3/uL (4.0-10.5)
[2020-08-12 10:28] LABS: INTERNATIONAL RATION (INR) 1.06; PARTIAL THROMBOPLASTIN TIME 28.5 SEC (23.5-35.8)
[2020-08-12 10:38] LABS: ANION GAP 8 (5-19); BLOOD UREA NITROGEN 14 mg/dL (7-20); CALCIUM 9.9 mg/dL (8.4-10.2); CARBON DIOXIDE 24 mmol/L (22-30); CHLORIDE 100 mmol/L (98-107); GLUCOSE 163 mg/dL (75-110); POTASSIUM 4.8 mmol/L (3.6-5.0)
[2020-08-12] MEDS ORDERED: CEFAZOLIN 1 GM/D5W RTU 1 GM/50 ML RTUPB IV ONE (11:30)
[2020-08-12] MEDS ORDERED: FENTANYL CITRATE INJ/PF 100 MCG/2 ML AMPUL IV PRN ×3 (12:24)
[2020-08-12] MEDS ORDERED: DIPHENHYDRAMINE HCL 50 MG/ML VIAL IV PRN (12:24)
[2020-08-12] MEDS ORDERED: ONDANSETRON HCL INJ/PF 4 MG/2 ML SDV IV PRN (12:24)
[2020-08-12] MEDS ORDERED: MEPERIDINE HCL/PF INJ 25 MG/1 ML DISP.SYRIN IV PRN (12:24)
[2020-08-12] MEDS ORDERED: MORPHINE SULFATE 10 MG/ML INJ IV PRN (12:24)
[2020-08-12] MEDS ORDERED: SUGAMMADEX SODIUM 200 MG/2 ML SDV IV ONE (12:42)
[2020-08-12] MEDS ORDERED: CEFAZOLIN 1 GM/D5W RTU 1 GM/50 ML RTUPB IV PRN (12:47)
[2020-08-12] MEDS ORDERED: OXYCODONE-ACETAMINOPHEN 5-325 MG TABLET PO PRN (12:50)
--- NOTE | 2020-08-12 12:50 | Discharge Summary ---
Discharge Summary (SDC) - Discharge Final Diagnosis: cholecystitis with cholelithiasis Date of Surgery: 08/12/20 Discharge Date: 08/12/20 Condition: Good Treatment or Instructions: [facility] [address], [place] [address] Discharge Instructions: Laparoscopic Surgery 1. General Information: a. DO NOT DRIVE a car or operate dangerous machinery for 3-4 days or while taking narcotic pain pills. b. DO NOT consume alcohol, tranquilizers, sleeping medications or any non- prescribed medications for 24 hours unless approved by your doctor or as long as taking narcotic prescription medications. c. DO NOT make important decisions or sign any important papers for the first 24 hours after surgery. d. When discharged home the same day of surgery have a responsible person with you for the first night. 2. Activity Restrictions: 2 weeks a. NO heavy lifting, straining abdominal muscles, bending over a lot, yard work, house work, or sports for [address] for 3-4 days c. It is fine to go for walks, up and down steps, ride in a car. d. Elevate your head when sleeping/resting. 3. Treatment: a. You may shower 24 hours after surgery, no baths or swimming for 2 weeks. Remove band-aids or dressings before shower but leave paper strips (steri- strips) on the skin to fall off on their own. If still on at postoperative visit they will be removed then. b. Drainage of fluid or blood is not unusual from an incision. If occurs, you can clean with peroxide and cotton ball daily and cover with dry gauze until the wound seals. c. If a lot of bleeding occurs, you can hold pressure with a gauze or cloth over the site for 10 minutes and it will usually stop. If bleeding continues you will need to call for possible evaluation in office or emergency room. 4. Medications: a. __Ultram_ may be taken for pain as needed, one tablet every 6 hours. Stop the narcotic when able since you cannot take it and drive, and they cause constipation. You may switch to plain Tylenol, Advil or Aleve when you stop the narcotic. Many adults find good pain relief with Advil 600-800 mg three times a day with meals. This can cause indigestion, ulcers, and kidney problems with long-term use. b. You should resume all normal medications unless a change is specified by your doctors. 5. Diet: Begin with clear liquids and may progress to your normal diet if not nauseated. No high fat, high protein foods the day of surgery. 6. The following may occur after laparoscopic surgery: a. Shoulder or upper back ache from retained gas that should resolve in 1-2 days b. Soreness and bruising at incision sites will resolve with time. c. Scrotal swelling (labia in women) and bruising is often seen after hernia surgery. d. Sore throat e. Fatigue may last days to weeks. f. Difficulty urinating may occur and may need to come into emergency room for urinary catheter placement. 7. Notify Physician If: a. Worsening or pain not improved with pain medication b. Persistent nausea and vomiting c. Fever above 101 d. Persistent bleeding or swelling at operative site e. Unable to urinate and uncomfortable bladder 6-8 hours after surgery 8..Follow Up Care: a. Schedule a follow up appointment with your doctor for 2 weeks. In the event of any postoperative problems or questions or you may call the office during business hours or the On-Call physician evenings and weekends at [facility]. [facility] I understand the instructions for my postoperative care as described above and a copy has been given to me. Patient/Significant Other Witness Date Prescriptions: Tramadol HCl [Ultram 50 mg Tablet] 50 mg PO Q6HP PRN #28 tab PRN Reason: Referrals: ROSENDO QUEVEDO MD [Primary Care Provider] - Discharge Diet: Other (Comments) - small bland portions then progress Discharge Activity: Activity As Tolerated, Balance Activity w/Rest, No Lifting/Push/Pulling Report the Following to Your Physician Immediately: Nausea, Vomiting, Increase in Pain, Fever over 101 Degrees, Unusual Bleeding, Redness, Swelling, Warmth, Increased Soreness, Drainage-Foul Smelling
--- NOTE | 2020-08-12 12:57 | Operative Report ---
Operative Report DATE OF SURGERY: 08/12/20 PREOPERATIVE DIAGNOSIS: 1. Symptomatic cholelithiasis cholecystitis. 2. Diab etes mellitus POSTOPERATIVE DIAGNOSIS: Same OPERATION: Laparoscopic cholecystectomy SURGEON: CASSANDRA SEWELL PROCESSING LEAD: JONI MTZ ANESTHESIA: GA TISSUE REMOVED OR ALTERED: 1 gallbladder with contents COMPLICATIONS: None ESTIMATED BLOOD LOSS: Scant INTRAOPERATIVE FINDINGS: See below PROCEDURE: Patient was taken the preop holding to the main operating room where general anesthesia was induced. Arms were abducted, abdomen prepped draped sterile fashion. Surgical plan surgical timeout were conducted. Instrumentation was set up for laparoscopic cholecystectomy. Sites marked for for port laparoscopy. Can was anesthetized 1% plain lidocaine. A supraumbilical vertical incision was made with a knife, Veress needle was inserted into the peritoneal cavity, pneumoperitoneum was established. Veress needle was removed, 5 mm ports inserted a 5 mm flexible scope was inserted. Under direct visualization 3 additional ports were placed in the subxiphoid and subcostal positions. Visualization of the peritoneal cavity revealed no evidence of vascular or visceral injury. Attention was directed to the right upper quadrant. 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 Graspers were placed on the gallbladder fundus and infundibulum. The gallbladder was reflected up over the liver bed. The neck of the gallbladder was dissected out with electrocautery hook under direct visualization. Node of Calot visualized, dissected free and mobilized medially. The cystic artery and cystic duct were in their usual anatomic locations. They were dissected out with the dolphin dissector. We got on both right and left sides of the cystic artery and cystic duct, with the triangle of Calot open widely, and the critical view obtained. Photographs were taken. The cystic artery was clipped twice proximally once distally and divided with scissors. The cystic duct was similarly clipped twice proximally once distally divided wit h scissors. Photos taken before and after clipping. The gallbladder is removed from the liver bed using hook cautery dissection. As part of the patient through the supraumbilical port site by bending the fascial defect slightly with Noreen clamps. The specimen was passed off to pathology after bisecting it on the back table. It contained multiple small caviar-like stones. We checked for bleeding in the peritoneal cavity and there was none. Sponge and needle counts are correct. Clips on the cystic artery stump and cystic duct stump intact. It is taken. All ports removed under direct visualization, pneumoperitoneum evacuated, wounds closed with 0 Vicryl 3-0 Vicryl benzoin and Steri-Strips. Patient tolerated the procedure well, extubated, taken to recovery room in stable condition. The physician social service assistant, Ms. Meza, provided assistance during this case by: Assisting and port insertion, retracting tissue, instillation of local anesthesia and closure of skin incisions.
[2020-08-12 15:02] VITALS: BP 153/84
[2020-08-12] MEDS ORDERED: ONDANSETRON HCL INJ/PF 4 MG/2 ML SDV ONE (15:34)
[2020-08-12] MEDS ORDERED: SUCCINYLCHOLINE CHLORIDE INJ 200 MG/10 ML VIAL ONE (15:34)
[2020-08-12] MEDS ORDERED: GLYCOPYRROLATE 1 MG/5 ML VIAL ONE (15:34)
[2020-08-12] MEDS ORDERED: ALBUTEROL SULFATE HFA (90 MCG/PUFF) 8 GM MDI IH ONE (15:34)
[2020-08-12] MEDS ORDERED: NEOSTIGMINE METHYLSULFATE 10 MG/10 ML VIAL ONE (15:34)
[2020-08-12] MEDS ORDERED: ROCURONIUM BROMIDE INJ 50 MG/5 ML VIAL IV ONE (15:34)
[2020-08-12] MEDS ORDERED: DEXAMETHASONE SOD PHOSPHATE INJ 4 MG/1 ML VIAL ONE (15:34)
== END 2020-08-12 14:53 | disposition home or self-care (01) ==
LOC: OROUT 09:05
PROVIDERS: ATTEND Surgery
DX: K80.10 Calculus of gallbladder with chronic cholecystitis without obstruction (principal); E11.40 Type 2 diabetes mellitus with diabetic neuropathy, unspecified; I48.0 Paroxysmal atrial fibrillation; I11.0 Hypertensive heart disease with heart failure; I50.9 Heart failure, unspecified; K21.9 Gastro-esophageal reflux disease without esophagitis; E78.00 Pure hypercholesterolemia, unspecified; J45.909 Unspecified asthma, uncomplicated; Z20.828 Contact with and (suspected) exposure to other viral communicable diseases; Z79.01 Long term (current) use of anticoagulants; Z87.891 Personal history of nicotine dependence; Z79.4 Long term (current) use of insulin; Z90.49 Acquired absence of other specified parts of digestive tract
CPT/HCPCS: 47562; 36415; 82962; 85027; 85610; 85730; 0241U ×4; 80048; 88304 ×2; 00790; J2250; J0690; J3490 ×3; J1100; J3010; J2710; J0330; J2405; J2704; A9270; C9803; 790